=== PATIENT | male | born 1955 | race African-American/Black ===

== ENCOUNTER 2017-05-25 11:13 | Inpatient (IN) | payer MEDICAID ==
[~2017-05-25] VITALS: Ht 167.6 cm; Wt 80.4 kg
[~2017-05-25 11:13] MED LIST: ALBUAER3 IN; AMIO200T33 PO; CARV25TA PO; FLUT100A INH; FURO80TA PO; GABA-497 PO; GLIP-116 PO; HYDR-2652 PO; INSLANTI SC; IPRIH INH; LISI-646 PO; OMEP20CA74 PO; RIVA10TA PO; SIMV10TA73 PO
[2017-05-25] MEDS ORDERED: cefTRIAXone 1GM/50ML D5W 50 ML IV ONE ×2 (11:45→14:30)
[2017-05-25] MEDS ORDERED: methylPREDNISolone SOD SUCC 125 MG/2 ML VL IV ONE (11:45)
[2017-05-25] MEDS ORDERED: LEVOFLOXACIN 750MG 150 ML IV ONE (11:45)
[2017-05-25] MEDS ORDERED: ALBUTEROL SULF 2.5 MG/0.5ML(0.5%) NEB SOLN HHN ONE (11:45)
[2017-05-25] MEDS ORDERED: IPRATROPIUM BROM 0.5 MG/2.5ML INH SOL HHN ONE (11:45)
[2017-05-25 12:15] LABS: Basophils # (auto) 0 uL; Basophils % (auto) 0.5 % (0.0-2.0); CONDITION Y; DEFINITIVE SEE PRINTOUT; Eosinophils # (auto) 0.5 uL; Eosinophils % (auto) 4.9 % (0.0-7.0); Hematocrit 40.6 % (41.0-53.0); Hemoglobin 12.9 g/dL (13.5-17.5); Lymphocytes # (auto) 1.6 uL; Lymphocytes % (auto) 16.7 % (10.0-50.0); Mean Corpuscular Hemoglobin 25.7 pg (28.0-32.0); Mean Corpuscular Hgb Conc. 31.7 g/dL (32.0-36.0); Mean Platelet Volume 9.3 fL (7.4-10.4); Monocytes # (auto) 0.9 uL; Monocytes % (auto) 9.5 % (0.0-12.0); Neutrophils # (auto) 6.5 uL; Neutrophils % (auto) 68.4 % (37.0-80.0); Platelet Count (auto) 302 10^3/uL (140-450); Red Cell Distribution Width 21.6 % (11.6-16.0); White Blood Cell 9.5 10^3/uL (4.4-10.8)
[2017-05-25] MEDS ORDERED: FUROSEMIDE 40 MG/4 ML VIAL IV ONE (12:30)
[2017-05-25 12:45] LABS: Albumin 3.2 g/dL (3.4-5.0); BUN/Creatinine Ratio 11.6; Bilirubin, Total 0.5 mg/dL (0.2-1.0); Calcium 10.5 mg/dL (8.5-10.1); Potassium 3.4 mmol/L (3.5-5.1); Total Protein 7.1 g/dL (6.4-8.2)
[2017-05-25 13:28] LABS: B-Type Natriuretic Peptide 949.1 pg/mL (0-100)
[2017-05-25] MEDS ORDERED: DEXTROSE (50%) 50ML SYRG IV PRN (13:45)
[2017-05-25] MEDS ORDERED: POTASSIUM CHLORIDE 8 MEQ TAB PO ONE (13:45)
[2017-05-25] MEDS ORDERED: cloNIDine HCL 0.1 MG TAB PO PRN (14:00)
[2017-05-25] MEDS ORDERED: MORPHINE SULF INJ 2 MG/ML SYRINGE 1ML IV PRN ×2 (14:15)
[2017-05-25] MEDS ORDERED: TEMAZEPAM 15 MG CAP PO PRN (14:15)
[2017-05-25] MEDS ORDERED: NITROGLYCERIN 0.4 MG SL TAB SL PRN (14:15)
[2017-05-25] MEDS ORDERED: ONDANSETRON HCL 4 MG/2 ML VIAL IV PRN (14:15)
[2017-05-25] MEDS ORDERED: DOCUSATE SOD 100 MG CAP PO PRN (14:15)
[2017-05-25] MEDS ORDERED: ACETAMINOPHEN 325 MG TAB PO PRN (14:15)
[2017-05-25] MEDS ORDERED: FAMOTIDINE 20 MG TAB PO ONE (14:30)
[2017-05-25] MEDS ORDERED: LORATADINE 10 MG TAB PO ONE (14:30)
[2017-05-25] MEDS ORDERED: RIVAROXABAN 10 MG TAB PO ONE (14:30)
[2017-05-25] MEDS ORDERED: LISINOPRIL 20 MG TAB PO ONE (14:30)
[2017-05-25] MEDS ORDERED: AMIODARONE HCL 200 MG TAB PO ONE (14:30)
[2017-05-25] MEDS ORDERED: FUROSEMIDE 40 MG TAB PO ONE (14:30)
[2017-05-25] MEDS ORDERED: methylPREDNISolone SOD SUCC 40 MG/ML VL IV ONE (14:30)
[2017-05-25] MEDS ORDERED: CARVEDILOL 12.5 MG TAB PO ONE (14:30)
[2017-05-25] MEDS ORDERED: hydrALAZINE HCL 25 MG TAB PO ONE (14:30)
[2017-05-25] MEDS ORDERED: MULTIPLE VITAMIN TAB PO ONE (14:30)
[2017-05-25] MEDS: GABAPENTIN 300 MG CAP PO SCH ×2 (15:30→22:12)
[2017-05-25] MEDS ORDERED: AZITHROMYCIN 250 MG TAB PO ONE (16:30)
[2017-05-25] MEDS: ACCU-CHEK COMFORT CURVE STRIP VI SCH ×2 (16:36→22:00)
[2017-05-25] MEDS: InsuLIN REG 1unit/0.01ml Soln (100units/ml) SC SCH ×2 (17:10→22:00)
[2017-05-25] MEDS: methylPREDNISolone SOD SUCC 40 MG/ML VL IV SCH (18:08)
[2017-05-25] MEDS: Boost Glucose Control 8 Ounces PO SCH (18:09)
[2017-05-25] MEDS: hydrALAZINE HCL 25 MG TAB PO SCH ×2 (18:09→23:44)
[2017-05-25] MEDS: ALBUTEROL SULF 2.5 MG/0.5ML(0.5%) NEB SOLN NEB SCH ×2 (20:52→23:01)
[2017-05-25] MEDS: IPRATROPIUM BROM 0.5 MG/2.5ML INH SOL NEB SCH ×2 (20:52→23:01)
[2017-05-25 20:53] LABS: BUN/Creatinine Ratio 10.4; Calcium 9.8 mg/dL (8.5-10.1); Potassium 4.1 mmol/L (3.5-5.1)
[2017-05-25 21:40] VITALS: BP 151/74
[2017-05-25 21:55] VITALS: BP 115/77
[2017-05-25] MEDS ORDERED: PATIENTS OWN MEDICATION IN SCH ×4 (22:00)
[2017-05-25] MEDS: INSULIN DETEMIR(LEVEMIR) 1unit/0.01ml Soln (100units/ml) SC SCH (22:00)
[2017-05-25] MEDS: SEREVENT 50 MCG IN SCH (22:00)
[2017-05-25] MEDS: FLOVENT IN SCH (22:00)
[2017-05-25] MEDS: CARVEDILOL 12.5 MG TAB PO SCH (22:13)
[2017-05-25] MEDS: SODIUM CHLOR 0.9% PF (SALINE LOCK) 10ML VIAL IV SCH (22:13)
[2017-05-25] MEDS: FAMOTIDINE 20 MG TAB PO SCH (22:13)
[2017-05-25] MEDS: BUDESONIDE (INHALATION) 0.5 MG/2 ML NEB NEB SCH (23:06)
[2017-05-26] VITALS (7 sets, daily range): BP systolic 14–146; BP diastolic 67–91
[2017-05-26 06:21] LABS: CONDITION Y; DEFINITIVE SEE PRINTOUT; Hematocrit 39.4 % (41.0-53.0); Hemoglobin 12.6 g/dL (13.5-17.5); Mean Corpuscular Hemoglobin 25.9 pg (28.0-32.0); Mean Corpuscular Volume 80.7 fL (80.0-100.0); Mean Platelet Volume 9.8 fL (7.4-10.4); Platelet Count (auto) 275 10^3/uL (140-450); SUSPECT SEE PRINTOUT; White Blood Cell 6.5 10^3/uL (4.4-10.8)
[2017-05-26] MEDS: SODIUM CHLOR 0.9% PF (SALINE LOCK) 10ML VIAL IV SCH ×3 (06:50→22:16)
[2017-05-26] MEDS: methylPREDNISolone SOD SUCC 40 MG/ML VL IV SCH ×4 (06:50→17:54)
[2017-05-26] MEDS: GABAPENTIN 300 MG CAP PO SCH ×3 (06:51→22:17)
[2017-05-26] MEDS: hydrALAZINE HCL 25 MG TAB PO SCH ×3 (06:51→17:52)
[2017-05-26] MEDS: ACCU-CHEK COMFORT CURVE STRIP VI SCH ×4 (06:51→22:15)
[2017-05-26 06:52] LABS: Metamyelocytes % 0; Myelocytes % 0; Promyelocytes % 0; Reactive Lymphocytes 0; Red Cell Distribution Width 21.5 % (11.6-16.0)
[2017-05-26] MEDS: InsuLIN REG 1unit/0.01ml Soln (100units/ml) SC SCH ×4 (06:52→22:35)
[2017-05-26] MEDS: ALBUTEROL SULF 2.5 MG/0.5ML(0.5%) NEB SOLN NEB SCH ×3 (06:57→19:12)
[2017-05-26] MEDS: IPRATROPIUM BROM 0.5 MG/2.5ML INH SOL NEB SCH ×3 (06:57→19:12)
[2017-05-26] MEDS: INSULIN DETEMIR(LEVEMIR) 1unit/0.01ml Soln (100units/ml) SC SCH ×2 (07:00→22:35)
[2017-05-26] MEDS ORDERED: PNEUMOCOCCAL VACC POLYS 25 MCG/0.5 ML VIAL IM ONE (07:15)
[2017-05-26] MEDS: Boost Glucose Control 8 Ounces PO SCH ×3 (08:00→18:18)
[2017-05-26 08:35] LABS: BUN/Creatinine Ratio 14.6; Potassium 3.9 mmol/L (3.5-5.1)
[2017-05-26 08:36] LABS: Albumin 3.1 g/dL (3.4-5.0); Bilirubin, Total 0.3 mg/dL (0.2-1.0); Calcium 10.4 mg/dL (8.5-10.1)
[2017-05-26 09:16] LABS: Anisocytosis Slight; Giant Platelets Few; Hypochromia Slight; Platelet Estimate Adequate
[2017-05-26] MEDS: AZITHROMYCIN 250 MG TAB PO SCH (09:25)
[2017-05-26] MEDS: MULTIPLE VITAMIN TAB PO SCH (09:26)
[2017-05-26] MEDS: CARVEDILOL 12.5 MG TAB PO SCH ×2 (09:26→22:16)
[2017-05-26] MEDS: FAMOTIDINE 20 MG TAB PO SCH ×2 (09:26→22:17)
[2017-05-26] MEDS: LORATADINE 10 MG TAB PO SCH (09:27)
[2017-05-26] MEDS: LISINOPRIL 20 MG TAB PO SCH (09:27)
[2017-05-26] MEDS: RIVAROXABAN 10 MG TAB PO SCH (09:27)
[2017-05-26] MEDS: AMIODARONE HCL 200 MG TAB PO SCH (09:27)
[2017-05-26] MEDS: cefTRIAXone 1GM/50ML D5W 50 ML IV SCH (09:28)
[2017-05-26] MEDS: FLOVENT IN SCH ×2 (09:31→22:00)
[2017-05-26] MEDS: SEREVENT 50 MCG IN SCH ×2 (09:31→22:00)
[2017-05-26] MEDS ORDERED: FUROSEMIDE 40 MG TAB PO SCH (10:00)
[2017-05-26] MEDS ORDERED: ENOXAPARIN SOD 40 MG/0.4 ML SYRINGE SC SCH (10:00)
[2017-05-26] MEDS ORDERED: PATIENTS OWN MEDICATION PO SCH ×4 (10:00)
[2017-05-26] MEDS: BUDESONIDE (INHALATION) 0.5 MG/2 ML NEB NEB SCH ×2 (11:55→19:16)
[2017-05-26 14:40] LABS: Urine Bilirubin Negative (Negative); Urine Blood Negative /uL (Negative); Urine Color Yellow (Yellow); Urine Glucose 1+ mg/dL (Normal); Urine Ketone Negative (Negative); Urine Nitrite Negative (Negative); Urine RBC <1 /hpf (0 - 3); Urine Squamous Epithelial Cell FEW /hpf (<5); Urine Urobilinogen Normal (Negative)
[2017-05-26] MEDS: HYDROcodone-ACET 5/325MG TAB PO PRN (20:04)
[2017-05-27] MEDS: IPRATROPIUM BROM 0.5 MG/2.5ML INH SOL NEB SCH ×4 (00:07→18:41)
[2017-05-27] MEDS: ALBUTEROL SULF 2.5 MG/0.5ML(0.5%) NEB SOLN NEB SCH ×4 (00:08→18:41)
[2017-05-27] MEDS: hydrALAZINE HCL 25 MG TAB PO SCH ×4 (00:13→17:19)
[2017-05-27] MEDS: methylPREDNISolone SOD SUCC 40 MG/ML VL IV SCH ×3 (00:17→21:54)
[2017-05-27 05:27] VITALS: BP 135/88
[2017-05-27] MEDS: GABAPENTIN 300 MG CAP PO SCH ×3 (06:26→21:55)
[2017-05-27] MEDS: SODIUM CHLOR 0.9% PF (SALINE LOCK) 10ML VIAL IV SCH ×3 (06:28→21:54)
[2017-05-27] MEDS: InsuLIN REG 1unit/0.01ml Soln (100units/ml) SC SCH ×4 (06:33→23:05)
[2017-05-27] MEDS: ACCU-CHEK COMFORT CURVE STRIP VI SCH ×4 (06:34→21:55)
[2017-05-27] MEDS: INSULIN DETEMIR(LEVEMIR) 1unit/0.01ml Soln (100units/ml) SC SCH ×2 (06:43→23:09)
[2017-05-27] MEDS: BUDESONIDE (INHALATION) 0.5 MG/2 ML NEB NEB SCH ×2 (07:05→18:42)
[2017-05-27 07:08] LABS: BUN/Creatinine Ratio 19.8; Calcium 10.5 mg/dL (8.5-10.1); Potassium 4.1 mmol/L (3.5-5.1)
[2017-05-27 07:09] LABS: B-Type Natriuretic Peptide 1057.34 pg/mL (0-100)
[2017-05-27 07:49] LABS: Temperature: 23.3 C (20.0-25.0)
[2017-05-27 08:00] VITALS: BP 135/88
[2017-05-27] MEDS: Boost Glucose Control 8 Ounces PO SCH ×3 (08:00→17:07)
[2017-05-27 09:00] VITALS: BP 137/78
[2017-05-27] MEDS: FUROSEMIDE 40 MG/4 ML VIAL IV SCH (09:33)
[2017-05-27] MEDS: MULTIPLE VITAMIN TAB PO SCH (09:33)
[2017-05-27] MEDS: AMIODARONE HCL 200 MG TAB PO SCH (09:33)
[2017-05-27] MEDS: LORATADINE 10 MG TAB PO SCH (09:33)
[2017-05-27] MEDS: CARVEDILOL 12.5 MG TAB PO SCH ×2 (09:33→21:55)
[2017-05-27] MEDS: SEREVENT 50 MCG IN SCH (09:34)
[2017-05-27] MEDS: FAMOTIDINE 20 MG TAB PO SCH ×2 (09:34→21:55)
[2017-05-27] MEDS: cefTRIAXone 1GM/50ML D5W 50 ML IV SCH (09:34)
[2017-05-27] MEDS: FLOVENT IN SCH (09:34)
[2017-05-27] MEDS: RIVAROXABAN 10 MG TAB PO SCH (09:35)
[2017-05-27] MEDS: LISINOPRIL 20 MG TAB PO SCH (09:35)
[2017-05-27] MEDS: AZITHROMYCIN 250 MG TAB PO SCH (09:35)
[2017-05-27] MEDS ORDERED: FUROSEMIDE 40 MG TAB PO SCH (10:00)
[2017-05-27 13:00] VITALS: BP 136/77
[2017-05-27] MEDS: SPIRONOLACTONE 25 MG TAB PO SCH (17:18)
[2017-05-27 17:52] VITALS: BP 139/57
[2017-05-27 22:00] VITALS: BP 134/88
[2017-05-28] MEDS: IPRATROPIUM BROM 0.5 MG/2.5ML INH SOL NEB SCH ×3 (00:14→13:32)
[2017-05-28] MEDS: ALBUTEROL SULF 2.5 MG/0.5ML(0.5%) NEB SOLN NEB SCH ×3 (00:14→13:32)
[2017-05-28] MEDS: hydrALAZINE HCL 25 MG TAB PO SCH ×3 (00:41→16:13)
[2017-05-28 05:00] VITALS: BP 137/85
[2017-05-28 06:00] LABS: Calcium 10.7 mg/dL (8.5-10.1); Potassium 4.1 mmol/L (3.5-5.1)
[2017-05-28] MEDS: SODIUM CHLOR 0.9% PF (SALINE LOCK) 10ML VIAL IV SCH ×2 (06:11→14:00)
[2017-05-28] MEDS: GABAPENTIN 300 MG CAP PO SCH ×2 (06:11→16:13)
[2017-05-28] MEDS: ACCU-CHEK COMFORT CURVE STRIP VI SCH ×2 (06:11→11:30)
[2017-05-28] MEDS: SPIRONOLACTONE 25 MG TAB PO SCH (06:11)
[2017-05-28] MEDS: InsuLIN REG 1unit/0.01ml Soln (100units/ml) SC SCH ×2 (06:12→11:30)
[2017-05-28 06:21] LABS: BUN/Creatinine Ratio 24.3
[2017-05-28] MEDS: INSULIN DETEMIR(LEVEMIR) 1unit/0.01ml Soln (100units/ml) SC SCH (06:24)
[2017-05-28] MEDS: BUDESONIDE (INHALATION) 0.5 MG/2 ML NEB NEB SCH (06:51)
[2017-05-28 08:00] VITALS: BP 136/75
[2017-05-28] MEDS: Boost Glucose Control 8 Ounces PO SCH ×2 (08:00→12:00)
[2017-05-28] MEDS: cefTRIAXone 1GM/50ML D5W 50 ML IV SCH (08:52)
[2017-05-28 09:00] VITALS: BP 125/77
[2017-05-28] MEDS: RIVAROXABAN 10 MG TAB PO SCH (10:00)
[2017-05-28] MEDS: MULTIPLE VITAMIN TAB PO SCH (10:00)
[2017-05-28] MEDS: methylPREDNISolone SOD SUCC 40 MG/ML VL IV SCH (10:45)
[2017-05-28] MEDS: FUROSEMIDE 40 MG/4 ML VIAL IV SCH (10:45)
[2017-05-28] MEDS: CARVEDILOL 12.5 MG TAB PO SCH (10:47)
[2017-05-28] MEDS: FAMOTIDINE 20 MG TAB PO SCH (10:48)
[2017-05-28] MEDS: AMIODARONE HCL 200 MG TAB PO SCH (10:48)
[2017-05-28] MEDS: LORATADINE 10 MG TAB PO SCH (10:49)
[2017-05-28] MEDS: AZITHROMYCIN 250 MG TAB PO SCH (10:51)
[2017-05-28] MEDS: LISINOPRIL 20 MG TAB PO SCH (10:52)
[2017-05-28] MEDS: HYDROcodone-ACET 5/325MG TAB PO PRN ×3 (10:59→16:14)
[2017-05-28 13:31] VITALS: BP 115/74
[2017-05-28 14:20] VITALS: BP 115/74
[2017-05-28 14:44] VITALS: BP 115/74
== END 2017-05-28 17:00 | disposition home or self-care (01) | DRG 194 ==
LOC: ER 11:19 → TELE 11:20 → TELE-WESTW 21:54
PROVIDERS: ADMIT Internal Medicine; ATTEND Internal Medicine
DX: I13.0 Hypertensive heart and chronic kidney disease with heart failure and stage 1 through stage 4 chronic kidney disease, or unspecified chronic kidney disease (principal); J18.9 Pneumonia, unspecified organism; E44.0 Moderate protein-calorie malnutrition; E11.22 Type 2 diabetes mellitus with diabetic chronic kidney disease; J44.0 Chronic obstructive pulmonary disease with (acute) lower respiratory infection; I42.9 Cardiomyopathy, unspecified; J45.901 Unspecified asthma with (acute) exacerbation; I27.2 Other secondary pulmonary hypertension; E83.52 Hypercalcemia; I50.43 Acute on chronic combined systolic (congestive) and diastolic (congestive) heart failure; I25.10 Atherosclerotic heart disease of native coronary artery without angina pectoris; J20.9 Acute bronchitis, unspecified; N18.2 Chronic kidney disease, stage 2 (mild); E78.5 Hyperlipidemia, unspecified; J44.1 Chronic obstructive pulmonary disease with (acute) exacerbation; Z99.81 Dependence on supplemental oxygen; Z23 Encounter for immunization; D63.8 Anemia in other chronic diseases classified elsewhere; E78.00 Pure hypercholesterolemia, unspecified; E87.6 Hypokalemia; Z82.49 Family history of ischemic heart disease and other diseases of the circulatory system; Z83.3 Family history of diabetes mellitus; Z87.891 Personal history of nicotine dependence; Z91.11 Patient's noncompliance with dietary regimen; Z95.810 Presence of automatic (implantable) cardiac defibrillator; Z79.899 Other long term (current) drug therapy; Z79.84 Long term (current) use of oral hypoglycemic drugs; Z68.28 Body mass index [BMI] 28.0-28.9, adult; Z88.8 Allergy status to other drugs, medicaments and biological substances
CPT/HCPCS: 36415; 71020; 78582; 80048; 80053; 81001; 82962; 83036; 83540; 83605; 83735; 83880; 84484; 85007; 85025; 85027; 85379; 87040; 87070; 87205; 93005; 94640; 96365; 96367; 96368; 96375; 99291; J0696; J1815; J1956

== ENCOUNTER → 2018-03-30 | Outpatient (CLI) | payer MEDICAID ==
[~2018-03-30] MED LIST changes: -GABA-497 PO; +GABA300C10 PO; -HYDR-2652 PO; +HYDR50TA15 PO
== END | disposition home or self-care (01) ==
LOC: XYW 10:54
PROVIDERS: ATTEND Internal Medicine Cardiovascular Disease
DX: I08.0 Rheumatic disorders of both mitral and aortic valves (principal); I50.40 Unspecified combined systolic (congestive) and diastolic (congestive) heart failure; I25.10 Atherosclerotic heart disease of native coronary artery without angina pectoris; E11.22 Type 2 diabetes mellitus with diabetic chronic kidney disease; I12.9 Hypertensive chronic kidney disease with stage 1 through stage 4 chronic kidney disease, or unspecified chronic kidney disease; N18.2 Chronic kidney disease, stage 2 (mild); E78.5 Hyperlipidemia, unspecified; J44.9 Chronic obstructive pulmonary disease, unspecified; Z79.899 Other long term (current) drug therapy
CPT/HCPCS: 93306

== ENCOUNTER 2018-05-16 08:26 | Day surgery (SDC) | payer MEDICAID, OTHER ==
[2018-05-12 09:23] LABS: Basophils # (auto) 0.1 uL; Eosinophils # (auto) 0.3 uL; Monocytes # (auto) 0.8 uL; Red Blood Cells 6.29 10^6/uL (4.5-5.90); White Blood Cell 6.2 10^3/uL (4.4-10.8)
[2018-05-12 09:24] LABS: Basophils % (auto) 1.2 % (0.0-2.0); Eosinophils % (auto) 5.5 % (0.0-7.0); Hematocrit 49.4 % (41.0-53.0); Hemoglobin 15.9 g/dL (13.5-17.5); Lymphocytes # (auto) 1.8 uL; Mean Corpuscular Hemoglobin 25.3 pg (28.0-32.0); Mean Corpuscular Hgb Conc. 32.2 g/dL (32.0-36.0); Mean Corpuscular Volume 78.5 fL (80.0-100.0); Monocytes % (auto) 12.8 % (0.0-12.0); Neutrophils # (auto) 3.2 uL; Neutrophils % (auto) 51.5 % (37.0-80.0); Nucleated Red Blood Cells % 2.3 %; Platelet Count (auto) 190 10^3/uL (140-450)
[2018-05-12 09:31] LABS: Red Cell Distribution Width 20.6 % (11.8-14.3)
[2018-05-12 09:39] LABS: INR 1.19 (0.9-1.15); Partial Thromboplastin Time 35.9 sec (23.78-33.04); Prothrombin Time 12.6 sec (9.27-12.13)
[~2018-05-16] VITALS: Ht 167.6 cm; Wt 86.2 kg
[~2018-05-16 08:26] MED LIST changes: +CETI10TA80 PO; -FLUT100A INH; -GLIP-116 PO; -HYDR50TA15 PO; +INSU70IN3 SC; -IPRIH INH; -OMEP20CA74 PO; +SERDISK IN
[2018-05-16] MEDS ORDERED: SODIUM CHLORIDE LOCK 10 ML ONE (08:38)
[2018-05-16] MEDS ORDERED: diphenhdrAMINE HCL 50 MG/1 ML VL ONE (08:38)
[2018-05-16] MEDS: fentaNYL CITRATE 100 MCG/2 ML VL ONE ×2 (09:57→10:02)
[2018-05-16] MEDS: MIDAZOLAM HCL 5 MG/ML-1ML VIAL ONE ×2 (09:57→10:02)
[2018-05-16 11:03] VITALS: BP 154/87
== END 2018-05-16 11:11 | disposition home or self-care (01) ==
LOC: SUR 08:26
PROVIDERS: ATTEND Internal Medicine Gastroenterology
DX: K63.5 Polyp of colon (principal); K64.8 Other hemorrhoids; E66.9 Obesity, unspecified; I50.9 Heart failure, unspecified; J44.9 Chronic obstructive pulmonary disease, unspecified; E11.9 Type 2 diabetes mellitus without complications; I48.91 Unspecified atrial fibrillation; Z82.49 Family history of ischemic heart disease and other diseases of the circulatory system; Z88.8 Allergy status to other drugs, medicaments and biological substances; Z95.0 Presence of cardiac pacemaker; Z91.02 Food additives allergy status; Z79.899 Other long term (current) drug therapy
CPT/HCPCS: 45380; J1200; J3010; J7030; 36415; 82962; 85025; 85610; 85730; 99152; J2250

== ENCOUNTER → 2019-03-01 | Outpatient (CLI) | payer MEDICAID, OTHER | END | disposition home or self-care (01) | LOC: XYW 09:07 | PROVIDERS: ATTEND Internal Medicine Cardiovascular Disease | DX: I42.0 Dilated cardiomyopathy (principal); I27.21 Secondary pulmonary arterial hypertension; I51.7 Cardiomegaly | CPT/HCPCS: 93306 ==

== ENCOUNTER 2019-05-03 08:34 | Day surgery (SDC) | payer MEDICAID ==
[~2019-05-03] VITALS: Ht 167.6 cm; Wt 88.9 kg
[~2019-05-03 08:34] MED LIST changes: +ALBU0.08 HHN; +FLUT250INH IN; +FURO40TA4 PO; -FURO80TA PO; +GUAI600T23 PO; -INSLANTI SC; -SIMV10TA73 PO; +SPIR25TA8 PO
[2019-05-03] MEDS ORDERED: LIDOCAINE 2%HCL (LOCAL ANESTH.) INJ 20ML MDV ONE ×2 (09:34→09:57)
[2019-05-03] MEDS ORDERED: fentaNYL CITRATE 100 MCG/2 ML VL ONE (09:35)
[2019-05-03] MEDS ORDERED: MIDAZOLAM HCL 1MG/1ML-2 ML VIAL ONE (09:35)
[2019-05-03] MEDS ORDERED: ANGIOMAX 250 MG VIAL IV ONE (09:35)
[2019-05-03] MEDS ORDERED: SODIUM CHL 0.9% 0 ML ONE (09:36)
[2019-05-03] MEDS ORDERED: ACETAMINOPHEN 500 MG TAB PO ONE (11:15)
== END 2019-05-03 12:50 | disposition home or self-care (01) ==
LOC: CATH 08:34
PROVIDERS: ATTEND Internal Medicine
DX: I27.20 Pulmonary hypertension, unspecified (principal); I25.10 Atherosclerotic heart disease of native coronary artery without angina pectoris; J44.9 Chronic obstructive pulmonary disease, unspecified; E78.5 Hyperlipidemia, unspecified; E11.9 Type 2 diabetes mellitus without complications; I11.0 Hypertensive heart disease with heart failure; I50.9 Heart failure, unspecified; Z79.899 Other long term (current) drug therapy; Z87.891 Personal history of nicotine dependence; Z79.4 Long term (current) use of insulin; Z88.8 Allergy status to other drugs, medicaments and biological substances; Z95.0 Presence of cardiac pacemaker
CPT/HCPCS: 93460; C1751; C1760; C1769; C1894; J1644; J2250; J3010; J7030; 93566; 99152; 99153

== ENCOUNTER 2020-03-11 01:40 | Inpatient (IN) | payer MEDICAID, OTHER ==
[~2020-03-11] VITALS: Ht 167.6 cm; Wt 201.3 kg
[2020-03-11 02:39] LABS: Basophils # (auto) 0.1 10 ^3/uL (0-0.2); Basophils % (auto) 1.4 % (0.0-2.0); Eosinophils # (auto) 0.2 10 ^3/uL (0-0.8); Eosinophils % (auto) 2.5 % (0.0-7.0); Hematocrit 30.1 % (41.0-53.0); Hemoglobin 9.6 g/dL (13.5-17.5); Lymphocytes # (auto) 1.3 10 ^3/uL (0.4-5.4); Lymphocytes % (auto) 20.7 % (10.0-50.0); Mean Corpuscular Hemoglobin 29.6 pg (28.0-32.0); Mean Corpuscular Hgb Conc. 31.9 g/dL (32.0-36.0); Mean Corpuscular Volume 92.8 fL (80.0-100.0); Monocytes # (auto) 0.8 10 ^3/uL (0-1.3); Monocytes % (auto) 11.9 % (0.0-12.0); Neutrophils % (auto) 63.5 % (37.0-80.0); Nucleated Red Blood Cells % 1.2 %; Platelet Count (auto) 223 10^3/uL (140-450); Red Blood Cells 3.24 10^6/uL (4.5-5.90); Red Cell Distribution Width 19.7 % (11.8-14.3); White Blood Cell 6.4 10^3/uL (4.4-10.8)
[2020-03-11 02:54] LABS: INR 1.06 (0.9-1.15); Partial Thromboplastin Time 22.8 sec (23.64-32.05)
[2020-03-11 03:00] LABS: Alanine Aminotransferase 17 U/L (16-61); Albumin 3.2 g/dL (3.4-5.0); Anion Gap 3 (5-15); Blood Urea Nitrogen 24 mg/dL (7-18); Calcium 9.8 mg/dL (8.5-10.1); Carbon Dioxide 25 mmol/L (21-32); Chloride 110 mmol/L (98-107); Glucose 167 mg/dL (74-106); Magnesium 2.3 mg/dL (1.6-2.6); Potassium 3.8 mmol/L (3.5-5.1); Sodium 138 mmol/L (136-145)
[2020-03-11 03:05] LABS: Alkaline Phosphatase 60 U/L (45-117); Aspartate Aminotransferase 11 U/L (15-37); BUN/Creatinine Ratio 12.2; Bilirubin, Total 0.2 mg/dL (0.2-1.0); GFR African American 45 mL/min; GFR Non-African American 37 mL/min; Total Protein 6.7 g/dL (6.4-8.2)
[2020-03-11] MEDS ORDERED: MORPHINE SULF INJ 2 MG/ML SYRINGE 1ML IV PRN (05:15)
[2020-03-11] MEDS ORDERED: ONDANSETRON HCL 4 MG/2 ML VIAL IV PRN (05:15)
[2020-03-11] MEDS ORDERED: DEXTROSE (50%) 50ML SYRG IV PRN (05:15)
[2020-03-11] MEDS ORDERED: NITROGLYCERIN 0.4 MG SL TAB SL PRN (05:15)
[2020-03-11 06:20] VITALS: BP 114/71
[2020-03-11] MEDS: SODIUM CHLORIDE 0.9% 1,000 ML IV SCH ×2 (06:30→18:53)
[2020-03-11] MEDS: ACCU-CHEK COMFORT CURVE STRIP VI SCH ×5 (08:30→23:43)
[2020-03-11] MEDS: InsuLIN REG 1unit/0.01ml Soln (100units/ml) SC SCH ×5 (08:30→23:44)
--- NOTE | 2020-03-11 09:10 | NUR ---
Telemetry admit from ER RAFAT MARES admitted to Telemetry unit after SBAR received. Patient oriented to Veronique Phillips, primary RN, unit, room, bed, and unit policies regarding patient care and visiting hours. Patient now on continuous telemetry monitoring, tele box #60 and telemetry reading on arrival to unit is SR @73 BPM. Bed set to lowest position/locked, bedside rails up x2, call light within reach. Instructed patient to call for assistance. Patient verbalized understanding. Will continue to monitor q1hr and prn.
[2020-03-11 09:25] VITALS: BP 123/73
[2020-03-11] MEDS: DOCUSATE SOD 100 MG CAP PO SCH (10:00)
[2020-03-11] MEDS: FUROSEMIDE 40 MG TAB PO SCH (10:00)
[2020-03-11] MEDS: SPIRONOLACTONE 25 MG TAB PO SCH ×2 (11:04→22:00)
[2020-03-11] MEDS: LORATADINE 10 MG TAB PO SCH (11:04)
[2020-03-11] MEDS: CARVEDILOL 12.5 MG TAB PO SCH ×2 (11:05→22:00)
[2020-03-11] MEDS: ASPirin 81 mg TAB PO SCH (11:05)
[2020-03-11] MEDS: LISINOPRIL 20 MG TAB PO SCH (11:06)
[2020-03-11] MEDS: AMIODARONE HCL 200 MG TAB PO SCH (11:08)
[2020-03-11] MEDS: INSULIN 70/30 1unit/0.01ml Susp (100units/ml) SC SCH (11:18)
[2020-03-11] MEDS: GABAPENTIN 300 MG CAP PO SCH ×2 (11:19→21:44)
[2020-03-11 13:15] VITALS: BP 146/83
[2020-03-11] MEDS: ACETAMINOPHEN 325 MG TAB PO PRN (16:14)
[2020-03-11 16:46] VITALS: BP 108/68
--- NOTE | 2020-03-11 18:11 | NUR ---
[employer] INTERROGATION SPOKE TO OPAL FROM [employer] RE: [facility] INTERROGATION. PER OPAL SHE WILL SEND A PAGE OUT TO A WHIPPED TOPPING FINISHER. AWAITING CALL BACK.
--- NOTE | 2020-03-11 18:18 | NUR ---
[facility] RECEIVED CALL FROM ROSAURA (REP), PER RAY THEY CANNOT FIND THE DEVICE IN THEIR DATABASE.
[2020-03-11] MEDS: RIVAROXABAN 10 MG TAB PO SCH (18:49)
--- NOTE | 2020-03-11 18:53 | NUR ---
PATIENT IS REQUESTING A DIPPER. INFORMED PATIENT THIS FACILITY IS A DIPPER FREE AND WE DO NOT PROVIDE DIPPERS. EDUCATED PATIENT ON THE RISK OF WEARING A DIPPER, SUCH SKIN BREAKDOWN. PATIENT STATED "I CAN HAVE MY BRING ME SOME DEPENDS." THIS NURSE REITERATED THE NO DIPPER FACILITY. PATIENT VERBALIZED UNDERSTANDING.
--- NOTE | 2020-03-11 19:04 | NUR ---
Respiratory note: Pt assess for prn tx. Tx not indicated at this time. Bs are diminished clear t/o. Pox 92-94% on 3lpm nc. HR in 70s. RT name and pager assignment written on pts room board. Will continue to monitor. Pt aware I can be paged at any time he feels sob or has a concern with his breathing.
--- NOTE | 2020-03-11 19:41 | NUR ---
Opening Shift Note Received report and assumed care of patient. Patient is awake and alert. No signs or symptoms of distress noted, patient currently denies pain. Instructed patient on plan of care and to call for assistance as needed. Will continue to monitor.
[2020-03-11 22:00] VITALS: BP 94/54
--- NOTE | 2020-03-11 22:05 | NUR ---
Blood Pressure Medications Held Patient's blood pressure 93/57, heart rate 64. Held Aldactone 25mg PO and Coreg 25mg PO due to decreased blood pressure. Patient denies dizziness or any symptoms. Paged hospitalist to notify, awaiting call back.
[2020-03-11 23:42] LABS: Urine Bacteria NONE SEEN /hpf (None Seen); Urine Blood Negative /uL (Negative); Urine Specific Gravity 1.016 (1.001-1.035); Urine WBC <1 /hpf (0 - 3)
--- NOTE | 2020-03-12 02:49 | NUR ---
Hospitalist Call Back Hospitalist made aware of blood pressure and blood pressure medications being held. No new orders at this time, will continue to monitor.
[2020-03-12] MEDS: InsuLIN REG 1unit/0.01ml Soln (100units/ml) SC SCH ×5 (04:00→22:00)
--- NOTE | 2020-03-12 04:40 | NUR ---
IV Insertion Inserted 20g IV to the Right Forearm. IV secured properly.Patient tolerated well. NOTE: Patient needs 2 IVs for stress test.
[2020-03-12] MEDS: ACCU-CHEK COMFORT CURVE STRIP VI SCH ×5 (04:48→22:00)
[2020-03-12 05:00] VITALS: BP 94/57
[2020-03-12 06:01] LABS: Basophils # (auto) 0 10 ^3/uL (0-0.2); Basophils % (auto) 0.3 % (0.0-2.0); Eosinophils # (auto) 0.2 10 ^3/uL (0-0.8); Eosinophils % (auto) 2.9 % (0.0-7.0); Hemoglobin 8.8 g/dL (13.5-17.5); Lymphocytes # (auto) 1.1 10 ^3/uL (0.4-5.4); Lymphocytes % (auto) 19.6 % (10.0-50.0); Mean Corpuscular Hemoglobin 30.3 pg (28.0-32.0); Mean Corpuscular Hgb Conc. 32.5 g/dL (32.0-36.0); Mean Corpuscular Volume 93.3 fL (80.0-100.0); Monocytes # (auto) 0.8 10 ^3/uL (0-1.3); Monocytes % (auto) 14.1 % (0.0-12.0); Neutrophils # (auto) 3.4 10 ^3/uL (1.6-8.6); Neutrophils % (auto) 63.1 % (37.0-80.0); Nucleated Red Blood Cells % 0.1 %; Platelet Count (auto) 200 10^3/uL (140-450); Red Blood Cells 2.89 10^6/uL (4.5-5.90); Red Cell Distribution Width 18.9 % (11.8-14.3); White Blood Cell 5.4 10^3/uL (4.4-10.8)
[2020-03-12 06:34] LABS: Potassium 4.6 mmol/L (3.5-5.1)
[2020-03-12 06:44] LABS: Calcium 9.8 mg/dL (8.5-10.1)
[2020-03-12] MEDS: SODIUM CHLORIDE 0.9% 1,000 ML IV SCH ×2 (06:50→21:15)
--- NOTE | 2020-03-12 07:44 | NUR ---
OPENING NOTE ASSUMED CARE OF PT. PT ALERT AND ORIENTED. NO S/S OF SOB/DISTRESS NOTED. BED SET TO LOWEST POSITION/LOCKED, BEDSIDE RAILS UP X2, CALL LIGHT WITHIN REACH. INSTRUCTED PATIENT TO CALL FOR ASSISTANCE. UPDATED ON POC. PT VERBALIZED UNDERSTANDING. WILL CONTINUE TO MONITOR Q1HR AND PRN.
[2020-03-12] MEDS ORDERED: ADENOSINE 78 MG in GIVE UN-DILUTED 0 ML IV STA (08:09)
[2020-03-12 08:35] VITALS: BP 105/56
[2020-03-12 08:49] VITALS: BP 109/71
[2020-03-12] MEDS: DOCUSATE SOD 100 MG CAP PO SCH (10:00)
[2020-03-12] MEDS: ASPirin 81 mg TAB PO SCH (10:03)
[2020-03-12] MEDS: GABAPENTIN 300 MG CAP PO SCH ×2 (10:04→22:39)
[2020-03-12] MEDS: LORATADINE 10 MG TAB PO SCH (10:04)
[2020-03-12] MEDS: LISINOPRIL 20 MG TAB PO SCH (10:04)
[2020-03-12] MEDS: SPIRONOLACTONE 25 MG TAB PO SCH ×2 (10:04→22:39)
[2020-03-12] MEDS: FUROSEMIDE 40 MG TAB PO SCH (10:04)
[2020-03-12] MEDS: IPRATROPIUM BROM 0.5 MG/2.5ML INH SOL NEB PRN (10:05)
[2020-03-12] MEDS: ALBUTEROL SULF 2.5 MG/0.5ML(0.5%) NEB SOLN NEB PRN (10:05)
[2020-03-12] MEDS: AMIODARONE HCL 200 MG TAB PO SCH (10:05)
[2020-03-12] MEDS: CARVEDILOL 12.5 MG TAB PO SCH ×2 (10:06→22:00)
[2020-03-12] MEDS: INSULIN 70/30 1unit/0.01ml Susp (100units/ml) SC SCH (10:08)
--- NOTE | 2020-03-12 12:04 | NUR ---
Est energy needs 3486-6443 kcal (22-25 kcal/kg BW) Est protein needs 93-103g (1-1.1g/kg BW). Will reassess prn. Addendum: 03/12/20 at [address] Amended: Links added.
[2020-03-12] MEDS ORDERED: ECON1CRE TOP (12:06)
[2020-03-12] MEDS ORDERED: FENO145T27 PO (12:06)
[2020-03-12] MEDS ORDERED: CHOL20007 PO (12:06)
[2020-03-12] MEDS ORDERED: FERR-20 PO (12:06)
[2020-03-12 13:00] VITALS: BP 95/62
--- NOTE | 2020-03-12 14:08 | NUR ---
[facility] INTER[facility] SPOKE TO CHARIS FROM [employer] RE: [facility] INTERROGATION. PER CHARIS SHE WILL SEND A PAGE OUT TO A IRRIGATION SUPERVISOR. AWAITING CALL BACK.
--- NOTE | 2020-03-12 14:16 | NUR ---
[employer] RECEIVED CALL FROM ROSAURA (REP), PER ROSAURA HE WILL COME TO SEE PATIENT TODAY.
[2020-03-12] MEDS ORDERED: ANGIOMAX 250 MG VIAL IV ONE (14:48)
[2020-03-12] MEDS ORDERED: SODIUM CHL 0.9% 50 ML ONE (14:48)
[2020-03-12 17:00] VITALS: BP 95/65
[2020-03-12] MEDS: RIVAROXABAN 10 MG TAB PO SCH (17:44)
--- NOTE | 2020-03-12 20:08 | NUR ---
RESPIRATORY PAGED FOR PRN BREATHING TREATMENT PER PATIENT REQUEST. NO S/S OF DISTRESS NOTED.
--- NOTE | 2020-03-12 21:43 | NUR ---
RESPIRATORY PAGED FOR PRN BREATHING TREATMENT PER PATIENT REQUEST. PER PATIENT RESPIRATORY HAS NOT BEEN IN TO GIVE PRN TREATMENT. NO S/S OF DISTRESS NOTED.
[2020-03-12 22:02] VITALS: BP 96/66
[2020-03-12] MEDS: ACETAMINOPHEN 325 MG TAB PO PRN (22:39)
--- NOTE | 2020-03-12 22:39 | NUR ---
HEADACHE PATIENT REPORTING A HEADACHE RATED PAIN LEVEL 4/10. PATIENT IS REQUESTING TYLENOL FOR HIS HEADACHE. PATIENT GIVEN TYLENOL PRN ORDERED FOR PAIN.
[2020-03-13 05:00] VITALS: BP 99/62
[2020-03-13 05:45] LABS: Basophils # (auto) 0.1 10 ^3/uL (0-0.2); Basophils % (auto) 0.9 % (0.0-2.0); Eosinophils # (auto) 0.2 10 ^3/uL (0-0.8); Eosinophils % (auto) 4.3 % (0.0-7.0); Hematocrit 28.1 % (41.0-53.0); Hemoglobin 9.2 g/dL (13.5-17.5); Lymphocytes # (auto) 1.3 10 ^3/uL (0.4-5.4); Lymphocytes % (auto) 24.5 % (10.0-50.0); Mean Corpuscular Hemoglobin 30.4 pg (28.0-32.0); Mean Corpuscular Hgb Conc. 32.9 g/dL (32.0-36.0); Mean Corpuscular Volume 92.5 fL (80.0-100.0); Monocytes # (auto) 0.7 10 ^3/uL (0-1.3); Monocytes % (auto) 12.5 % (0.0-12.0); Neutrophils # (auto) 3.2 10 ^3/uL (1.6-8.6); Neutrophils % (auto) 57.8 % (37.0-80.0); Nucleated Red Blood Cells % 0.5 %; Platelet Count (auto) 221 10^3/uL (140-450); Red Blood Cells 3.04 10^6/uL (4.5-5.90); Red Cell Distribution Width 18.8 % (11.8-14.3); White Blood Cell 5.5 10^3/uL (4.4-10.8)
[2020-03-13 05:56] LABS: BUN/Creatinine Ratio 9.9; Calcium 10.5 mg/dL (8.5-10.1); Potassium 4.4 mmol/L (3.5-5.1)
[2020-03-13] MEDS: ACCU-CHEK COMFORT CURVE STRIP VI SCH ×4 (06:50→22:00)
[2020-03-13] MEDS: InsuLIN REG 1unit/0.01ml Soln (100units/ml) SC SCH ×4 (06:50→22:00)
[2020-03-13 09:00] VITALS: BP 105/69
--- NOTE | 2020-03-13 10:15 | NUR ---
Dr. Urbina at bedside to assess patient and discuss plan of care
[2020-03-13] MEDS: DOCUSATE SOD 100 MG CAP PO SCH (10:22)
[2020-03-13] MEDS: FUROSEMIDE 40 MG TAB PO SCH (10:22)
[2020-03-13] MEDS: LORATADINE 10 MG TAB PO SCH (10:23)
[2020-03-13] MEDS: GABAPENTIN 300 MG CAP PO SCH ×2 (10:23→22:50)
[2020-03-13] MEDS: ASPirin 81 mg TAB PO SCH (10:23)
[2020-03-13] MEDS: SPIRONOLACTONE 25 MG TAB PO SCH ×2 (10:25→22:50)
[2020-03-13] MEDS: CARVEDILOL 12.5 MG TAB PO SCH ×2 (10:25→22:00)
[2020-03-13] MEDS: LISINOPRIL 20 MG TAB PO SCH (10:27)
[2020-03-13] MEDS: INSULIN 70/30 1unit/0.01ml Susp (100units/ml) SC SCH (10:38)
[2020-03-13] MEDS: AMIODARONE HCL 200 MG TAB PO SCH (10:40)
[2020-03-13] MEDS: SODIUM CHLORIDE 0.9% 1,000 ML IV SCH (10:41)
[2020-03-13] MEDS: ALBUTEROL SULF 2.5 MG/0.5ML(0.5%) NEB SOLN NEB PRN ×2 (11:26→18:14)
[2020-03-13] MEDS: IPRATROPIUM BROM 0.5 MG/2.5ML INH SOL NEB PRN ×2 (11:26→18:14)
[2020-03-13 12:16] LABS: Cholesterol 184 mg/dL (< 200)
[2020-03-13 12:18] LABS: HDL Cholesterol 33 mg/dL (40-59); LDL Cholesterol 123 mg/dL (< 100); Triglycerides 179 mg/dL (< 150)
[2020-03-13 13:00] VITALS: BP 94/58
[2020-03-13 16:52] VITALS: BP 98/58
[2020-03-13] MEDS: RIVAROXABAN 10 MG TAB PO SCH (18:46)
[2020-03-13 21:53] VITALS: BP 103/57
[2020-03-14] VITALS (7 sets, daily range): BP systolic 97–129; BP diastolic 56–77
[2020-03-14] MEDS: InsuLIN REG 1unit/0.01ml Soln (100units/ml) SC SCH ×4 (06:10→21:27)
[2020-03-14] MEDS: ACCU-CHEK COMFORT CURVE STRIP VI SCH ×4 (06:10→21:27)
[2020-03-14] MEDS: ACETAMINOPHEN 325 MG TAB PO PRN (06:50)
--- NOTE | 2020-03-14 06:50 | NUR ---
HEADACHE PATIENT REPORTING HEADACHE RATED 3/10. PRN MEDICATION GIVEN ORDERED.
[2020-03-14 07:00] LABS: Basophils # (auto) 0 10 ^3/uL (0-0.2); Basophils % (auto) 0.7 % (0.0-2.0); Eosinophils # (auto) 0.2 10 ^3/uL (0-0.8); Eosinophils % (auto) 2.8 % (0.0-7.0); Hematocrit 28.2 % (41.0-53.0); Hemoglobin 9.3 g/dL (13.5-17.5); Lymphocytes # (auto) 1.3 10 ^3/uL (0.4-5.4); Lymphocytes % (auto) 21.5 % (10.0-50.0); Mean Corpuscular Hemoglobin 30.1 pg (28.0-32.0); Mean Corpuscular Hgb Conc. 33.1 g/dL (32.0-36.0); Mean Corpuscular Volume 90.9 fL (80.0-100.0); Monocytes # (auto) 0.6 10 ^3/uL (0-1.3); Monocytes % (auto) 9.9 % (0.0-12.0); Neutrophils # (auto) 4.1 10 ^3/uL (1.6-8.6); Neutrophils % (auto) 65.1 % (37.0-80.0); Nucleated Red Blood Cells % 0.2 %; Platelet Count (auto) 238 10^3/uL (140-450); Red Cell Distribution Width 18.6 % (11.8-14.3); White Blood Cell 6.3 10^3/uL (4.4-10.8)
[2020-03-14 07:11] LABS: BUN/Creatinine Ratio 11.3; Calcium 10.8 mg/dL (8.5-10.1); Potassium 4.5 mmol/L (3.5-5.1)
[2020-03-14] MEDS: SPIRONOLACTONE 25 MG TAB PO SCH ×2 (09:58→21:44)
[2020-03-14] MEDS: DOCUSATE SOD 100 MG CAP PO SCH (09:58)
[2020-03-14] MEDS: ASPirin 81 mg TAB PO SCH (09:58)
[2020-03-14] MEDS: FUROSEMIDE 40 MG TAB PO SCH (10:00)
[2020-03-14] MEDS: CARVEDILOL 12.5 MG TAB PO SCH ×2 (10:00→21:44)
[2020-03-14] MEDS: LISINOPRIL 20 MG TAB PO SCH (10:00)
[2020-03-14] MEDS: AMIODARONE HCL 200 MG TAB PO SCH (10:00)
[2020-03-14] MEDS: LORATADINE 10 MG TAB PO SCH (10:02)
[2020-03-14] MEDS: GABAPENTIN 300 MG CAP PO SCH ×2 (10:02→21:44)
[2020-03-14] MEDS: INSULIN 70/30 1unit/0.01ml Susp (100units/ml) SC SCH (10:14)
[2020-03-14] MEDS: IPRATROPIUM BROM 0.5 MG/2.5ML INH SOL NEB PRN ×2 (10:35→23:08)
[2020-03-14] MEDS: ALBUTEROL SULF 2.5 MG/0.5ML(0.5%) NEB SOLN NEB PRN ×2 (10:35→23:09)
[2020-03-14] MEDS: RIVAROXABAN 10 MG TAB PO SCH (17:57)
--- NOTE | 2020-03-14 19:20 | NUR ---
Opening Note Patient awake in bed AOX4. Patient has no signs of distress or SOB. Discussed POC w/ patient, patient verbalized understanding. Safety precautions in place w/ HOB at 30 degrees, side rails up x2, and bed in lowest position. Will continue to monitor.
[2020-03-14] MEDS: SILDENAFIL CITRATE 20 MG TAB PO SCH (19:54)
[2020-03-15 05:48] VITALS: BP 111/81
[2020-03-15] MEDS: ALBUTEROL SULF 2.5 MG/0.5ML(0.5%) NEB SOLN NEB PRN (06:13)
[2020-03-15] MEDS: IPRATROPIUM BROM 0.5 MG/2.5ML INH SOL NEB PRN (06:13)
[2020-03-15] MEDS: ACCU-CHEK COMFORT CURVE STRIP VI SCH ×2 (06:40→10:30)
[2020-03-15] MEDS: InsuLIN REG 1unit/0.01ml Soln (100units/ml) SC SCH ×2 (06:44→15:49)
--- NOTE | 2020-03-15 07:30 | NUR ---
Opening Shift Note Assumed care of patient, awake and alert. No S/S of distress/SOB or pain. Instructed on POC and to call for assist PRN, will continue to monitor for changes Q1hr and PRN.
[2020-03-15] MEDS: SILDENAFIL CITRATE 20 MG TAB PO SCH ×2 (08:00→14:30)
[2020-03-15 09:00] VITALS: BP 104/64
[2020-03-15] MEDS: SPIRONOLACTONE 25 MG TAB PO SCH (09:35)
[2020-03-15] MEDS: ASPirin 81 mg TAB PO SCH (09:35)
[2020-03-15] MEDS: DOCUSATE SOD 100 MG CAP PO SCH (09:36)
[2020-03-15] MEDS: FUROSEMIDE 40 MG TAB PO SCH (09:36)
[2020-03-15] MEDS: GABAPENTIN 300 MG CAP PO SCH (09:36)
[2020-03-15] MEDS: CARVEDILOL 12.5 MG TAB PO SCH (09:37)
[2020-03-15] MEDS: AMIODARONE HCL 200 MG TAB PO SCH (09:37)
[2020-03-15] MEDS: LISINOPRIL 20 MG TAB PO SCH (10:00)
[2020-03-15] MEDS: LORATADINE 10 MG TAB PO SCH (10:05)
[2020-03-15] MEDS: INSULIN 70/30 1unit/0.01ml Susp (100units/ml) SC SCH (10:13)
--- NOTE | 2020-03-15 11:50 | NUR ---
Nutrition Follow-up Notes Wt.: 91.3 kg Pt was asleep during rounds. pt po intake is adequate aeb 75% po 03/14 per RN doc. Est energy needs 9470-1148 kcal (22-25 kcal/kg BW) Est protein needs 93-103g (1-1.1g/kg BW). Will reassess prn. Labs: Creat 1.60H, Glu 133H, Ca 10.8H, Alb 3.2L Skin: BS 18, low risk GI: Last BM 03/12 per RN Doc PES: Obesity r/t excessive caloric intake aeb 144% of IBW and BMI of 33.2 Increased energy needs r/t chronic medical condition of COPD aeb increased needs from COPD Comments 1) Continue to monitor po intake, skin status, and labs 2) Refer pt to [facility] on DC 3) Continue current plan of care Expected Outcomes/Goals: 1) pt will consume >75% of po intake 2) pt will maintain wt while in hospital 3) F/u 3-5 days
[2020-03-15 13:00] VITALS: BP 97/59
[2020-03-15] MEDS ORDERED: SILD20TA PO (14:41)
[2020-03-15 15:22] VITALS: BP 104/64
--- NOTE | 2020-03-15 15:26 | NUR ---
assessment Patient is a 65 year old male who is alert and oriented. Patients cognitive abilities are intact. Prior to admission patient lived home with family and functioned independently. Patient informed me he is able to care for his own ADLs. Per patient he will return home to his prior living arrangements post discharge and family will transport him home. Patient has a fww for home use. Patients PCP is Dr Elliott. Patient has no insurance. Patient has been assessed by Anthony Sharif of [facility]. Per Anthony patient is over Income. I have provided patient with resources for [facility], Dr. Wooten, and [facility] urgent care for follow up visits. I have provided patient with a prescription card from community assistance program.I informed patient he has a right to speak to a social work coordinator regarding all care. I informed patient he has a right to participate in any and all discharge planning. Patient does not have a POA and advanced directive. I have offered patient information on POA and advanced directives. I informed the patient the advantages and benefits of having an Advanced Directive. Patient verbalized understanding and agreed to discharge plan. Addendum: 03/15/20 at 1531 by Radha PORTER Amended: Links added.
--- NOTE | 2020-03-15 16:17 | NUR ---
Discharge instructions given as ordered. Encourage to follow up with PMD as instructed. All questions and concerns addressed. Patient verbalized understanding. Medication reconciliation form completed and copy given to patient.. IV removed with catheter intact, pressure dressing applied. Telemetry unit returned to ICU. Patient taken to vehicle via wheelchair with all personal belongings, accompanied by staff and family member. No distress noted at time of departure.
== END 2020-03-15 16:06 | disposition home or self-care (01) | DRG 198 ==
LOC: EDBD 01:40 → ER 01:43 → EDUNIT# 01:43 → EDBD 01:43 → TELE 01:44 → TELE-WESTW 09:27
PROVIDERS: ADMIT Hospitalist; ATTEND Internal Medicine
PROC: 4B02XTZ Measurement of Cardiac Defibrillator, External Approach (ICD-10-PCS; principal; 2020-03-14)
DX: I24.9 Acute ischemic heart disease, unspecified (principal); I50.42 Chronic combined systolic (congestive) and diastolic (congestive) heart failure; I27.82 Chronic pulmonary embolism; D63.8 Anemia in other chronic diseases classified elsewhere; E11.21 Type 2 diabetes mellitus with diabetic nephropathy; E66.9 Obesity, unspecified; E78.5 Hyperlipidemia, unspecified; I11.0 Hypertensive heart disease with heart failure; I25.10 Atherosclerotic heart disease of native coronary artery without angina pectoris; I25.2 Old myocardial infarction; I25.5 Ischemic cardiomyopathy; J43.9 Emphysema, unspecified; Z79.84 Long term (current) use of oral hypoglycemic drugs; Z82.49 Family history of ischemic heart disease and other diseases of the circulatory system; Z87.891 Personal history of nicotine dependence; Z95.810 Presence of automatic (implantable) cardiac defibrillator; I27.20 Pulmonary hypertension, unspecified; E83.52 Hypercalcemia; E27.8 Other specified disorders of adrenal gland; Z68.30 Body mass index [BMI] 30.0-30.9, adult
CPT/HCPCS: 36415; 71045; 71250; 78452; 78582; 80048; 80053; 80061; 81001; 82962; 83036; 83735; 83880; 83970; 84443; 84484; 85025; 85610; 85730; 93017; 93306; 94640; G0378; J0153; J1815

== ENCOUNTER 2022-04-02 14:52 | Inpatient (IN) | payer OTHER, MEDICAID ==
[~2022-04-02] VITALS: Ht 167.6 cm; Wt 82.0 kg
[~2022-04-02 14:52] MED LIST changes: +CETI10TA2 PO; -CETI10TA80 PO; +CHOL20007 PO; +ECON1CRE6 TOP; +FENO145T27 PO; +FERR-20 PO; -LISI-646 PO; +LISI20TA28 PO; +SILD20TA PO
[2022-04-02 16:06] LABS: Basophils # (auto) 0 10 ^3/uL (0-0.2); Eosinophils # (auto) 0.1 10 ^3/uL (0-0.8); Lymphocytes # (auto) 1.6 10 ^3/uL (0.4-5.4); Neutrophils # (auto) 2.8 10 ^3/uL (1.6-8.6); Red Cell Distribution Width 16.2 % (11.8-14.3); White Blood Cell 5.4 10^3/uL (4.4-10.8)
[2022-04-02 16:08] LABS: Basophils % (auto) 0.8 % (0.0-2.0); Eosinophils % (auto) 2.4 % (0.0-7.0); Hemoglobin 20.4 g/dL (13.5-17.5); Lymphocytes % (auto) 30.2 % (10.0-50.0); Mean Corpuscular Hemoglobin 32.1 pg (28.0-32.0); Mean Corpuscular Hgb Conc. 34.3 g/dL (32.0-36.0); Mean Corpuscular Volume 93.8 fL (80.0-100.0); Monocytes # (auto) 0.7 10 ^3/uL (0-1.3); Monocytes % (auto) 13.6 % (0.0-12.0); Nucleated Red Blood Cells % 0.7 %; Red Blood Cells 6.36 10^6/uL (4.5-5.90)
[2022-04-02 16:13] LABS: Alanine Aminotransferase 25 U/L (16-61); Albumin 3.6 g/dL (3.4-5.0); Anion Gap 7 (5-15); Aspartate Aminotransferase 22 U/L (15-37); BUN/Creatinine Ratio 11.6; Blood Urea Nitrogen 26 mg/dL (7-18); Calcium 11.5 mg/dL (8.5-10.1); Carbon Dioxide 21 mmol/L (21-32); Chloride 112 mmol/L (98-107); GFR African American 38 mL/min; GFR Non-African American 31 mL/min; Glucose 105 mg/dL (74-106); Potassium 4.3 mmol/L (3.5-5.1); Sodium 140 mmol/L (136-145)
[2022-04-02 16:16] LABS: Alkaline Phosphatase 52 U/L (45-117); Bilirubin, Total 0.5 mg/dL (0.2-1.0); Hematocrit 59.7 % (41.0-53.0); Total Protein 7.2 g/dL (6.4-8.2)
[2022-04-02 17:30] VITALS: BP 132/83
[2022-04-02] MEDS ORDERED: FUROSEMIDE 40 MG/4 ML VIAL IV ONE (22:15)
[2022-04-02] MEDS ORDERED: DOCUSATE SOD 100 MG CAP PO PRN (22:15)
[2022-04-02] MEDS ORDERED: DEXTROSE (50%) 50ML SYRG IV PRN (22:15)
[2022-04-02] MEDS: HYDROcodone-ACET 5/325MG TAB PO PRN (23:12)
[2022-04-03] VITALS (7 sets, daily range): BP systolic 111–152; BP diastolic 55–89
[2022-04-03] MEDS ORDERED: MORPHINE SULFATE INJ 2 MG/ml SYRG IV PRN
[2022-04-03] MEDS ORDERED: NITROGLYCERIN 0.4 MG SL TAB SL PRN
[2022-04-03 05:56] LABS: Eosinophils # (auto) 0.2 10 ^3/uL (0-0.8); Hemoglobin 19.9 g/dL (13.5-17.5); Monocytes # (auto) 0.7 10 ^3/uL (0-1.3); Neutrophils # (auto) 2.2 10 ^3/uL (1.6-8.6); Potassium 4.2 mmol/L (3.5-5.1); Red Blood Cells 6.17 10^6/uL (4.5-5.90); Red Cell Distribution Width 16.1 % (11.8-14.3); White Blood Cell 4.6 10^3/uL (4.4-10.8)
[2022-04-03 05:59] LABS: Basophils # (auto) 0.1 10 ^3/uL (0-0.2); Basophils % (auto) 1.3 % (0.0-2.0); Eosinophils % (auto) 3.6 % (0.0-7.0); Lymphocytes # (auto) 1.4 10 ^3/uL (0.4-5.4); Lymphocytes % (auto) 31.3 % (10.0-50.0); Mean Corpuscular Hemoglobin 32.2 pg (28.0-32.0); Mean Corpuscular Hgb Conc. 34.4 g/dL (32.0-36.0); Mean Corpuscular Volume 93.6 fL (80.0-100.0); Monocytes % (auto) 14.9 % (0.0-12.0); Neutrophils % (auto) 48.9 % (37.0-80.0); Nucleated Red Blood Cells % 1.9 %
[2022-04-03] MEDS ORDERED: ALBUTEROL SULF HFA 90MCG INH 200DOSE IN SCH (06:00)
[2022-04-03] MEDS ORDERED: ALBUTEROL SULF 2.5 MG/0.5ML(0.5%) NEB SOLN NEB PRN (06:00)
[2022-04-03 06:03] LABS: Albumin 3.7 g/dL (3.4-5.0); BUN/Creatinine Ratio 15.3; Calcium 11.7 mg/dL (8.5-10.1)
[2022-04-03 06:06] LABS: Bilirubin, Total 0.5 mg/dL (0.2-1.0); Total Protein 6.9 g/dL (6.4-8.2)
[2022-04-03] MEDS: InsuLIN REG 1unit/0.01ml Soln (100units/ml) SC SCH ×4 (06:21→21:15)
[2022-04-03] MEDS: ACCU-CHEK COMFORT CURVE STRIP VI SCH ×4 (06:21→21:15)
[2022-04-03] MEDS: SODIUM CHLOR 0.9% PF (SALINE LOCK) 10ML VIAL/SYR IV SCH ×3 (06:21→21:20)
[2022-04-03 06:22] LABS: Hematocrit 57.8 % (41.0-53.0)
[2022-04-03] MEDS ORDERED: ZOLEDRONIC ACID 4 MG in SODIUM CHL 0.9% 100 ML IV ONE (09:15)
[2022-04-03] MEDS: FAMOTIDINE (10MG/ML) 2ML VL IV SCH (09:16)
[2022-04-03] MEDS: FUROSEMIDE 40 MG/4 ML VIAL IV SCH (09:18)
[2022-04-03] MEDS: APIXABAN 2.5 MG TAB PO SCH ×2 (09:19→21:16)
[2022-04-03] MEDS ORDERED: CARVEDILOL 3.125 MG TAB PO SCH (10:00)
[2022-04-03] MEDS ORDERED: cefTRIAXone 1GM/50ML D5W 50 ML IV ONE (11:15)
[2022-04-03] MEDS ORDERED: AZITHROMYCIN 500MG/ 250ML 250 ML IV ONE (11:15)
[2022-04-03] MEDS: HYDROcodone-ACET 5/325MG TAB PO PRN (19:36)
[2022-04-03] MEDS: SACUBITRIL-VALSARTAN 24mg/26mg TAB PO SCH (21:16)
[2022-04-04 05:00] VITALS: BP 126/85
[2022-04-04 05:50] LABS: Potassium 4.1 mmol/L (3.5-5.1)
[2022-04-04 05:55] LABS: BUN/Creatinine Ratio 15.9; Calcium 11.1 mg/dL (8.5-10.1)
[2022-04-04] MEDS: ACCU-CHEK COMFORT CURVE STRIP VI SCH ×4 (06:07→21:02)
[2022-04-04] MEDS: InsuLIN REG 1unit/0.01ml Soln (100units/ml) SC SCH ×4 (06:07→21:07)
[2022-04-04] MEDS: SODIUM CHLOR 0.9% PF (SALINE LOCK) 10ML VIAL/SYR IV SCH ×3 (06:07→21:02)
[2022-04-04 08:46] VITALS: BP 130/89
[2022-04-04] MEDS: cefTRIAXone 1GM/50ML D5W 50 ML IV SCH (09:37)
[2022-04-04] MEDS: FUROSEMIDE 40 MG/4 ML VIAL IV SCH (09:38)
[2022-04-04] MEDS: AZITHROMYCIN 500MG/ 250ML 250 ML IV SCH (09:39)
[2022-04-04] MEDS: FAMOTIDINE (10MG/ML) 2ML VL IV SCH (09:39)
[2022-04-04] MEDS: SACUBITRIL-VALSARTAN 24mg/26mg TAB PO SCH ×2 (09:40→21:04)
[2022-04-04] MEDS: APIXABAN 2.5 MG TAB PO SCH ×2 (10:33→12:09)
[2022-04-04] MEDS: ONDANSETRON HCL 4 MG/2 ML VIAL IV PRN (10:44)
[2022-04-04 12:47] VITALS: BP 118/64
[2022-04-04 16:51] VITALS: BP 138/91
[2022-04-04] MEDS: HYDROcodone-ACET 5/325MG TAB PO PRN (21:07)
[2022-04-04 22:00] VITALS: BP 117/81
[2022-04-05 05:00] VITALS: BP 129/85
[2022-04-05] MEDS: SODIUM CHLOR 0.9% PF (SALINE LOCK) 10ML VIAL/SYR IV SCH ×3 (06:00→21:14)
[2022-04-05] MEDS: ACCU-CHEK COMFORT CURVE STRIP VI SCH ×4 (06:39→21:16)
[2022-04-05] MEDS: InsuLIN REG 1unit/0.01ml Soln (100units/ml) SC SCH ×4 (06:39→21:16)
[2022-04-05 07:42] LABS: Potassium 4.6 mmol/L (3.5-5.1)
[2022-04-05] MEDS ORDERED: ZOLEDRONIC ACID 4 MG in SODIUM CHL 0.9% 100 ML IV ONE ×2 (08:15→13:45)
[2022-04-05] MEDS: cefTRIAXone 1GM/50ML D5W 50 ML IV SCH (08:30)
[2022-04-05 09:00] VITALS: BP 135/84
[2022-04-05] MEDS: APIXABAN 2.5 MG TAB PO SCH ×2 (09:36→21:14)
[2022-04-05] MEDS: ACETAMINOPHEN 325 MG TAB PO PRN (09:37)
[2022-04-05] MEDS: SACUBITRIL-VALSARTAN 24mg/26mg TAB PO SCH ×2 (09:38→21:14)
[2022-04-05] MEDS: AZITHROMYCIN 500MG/ 250ML 250 ML IV SCH (09:40)
[2022-04-05] MEDS: FAMOTIDINE (10MG/ML) 2ML VL IV SCH (10:00)
[2022-04-05] MEDS: CALCITONIN 400unit/2ml Vial (200unit/ml) SC SCH ×2 (12:53→14:09)
[2022-04-05 13:00] VITALS: BP 122/84
[2022-04-05] MEDS: ONDANSETRON HCL 4 MG/2 ML VIAL IV PRN (14:59)
[2022-04-05 17:00] VITALS: BP 135/85
[2022-04-05] MEDS: HYDROcodone-ACET 5/325MG TAB PO PRN (20:12)
[2022-04-05 22:35] VITALS: BP 121/75
[2022-04-06 01:17] VITALS: BP 121/75
[2022-04-06 05:00] VITALS: BP 137/93
[2022-04-06] MEDS: SODIUM CHLOR 0.9% PF (SALINE LOCK) 10ML VIAL/SYR IV SCH ×3 (06:04→21:20)
[2022-04-06] MEDS: InsuLIN REG 1unit/0.01ml Soln (100units/ml) SC SCH ×4 (06:04→21:28)
[2022-04-06] MEDS: ACCU-CHEK COMFORT CURVE STRIP VI SCH ×4 (06:04→21:22)
[2022-04-06 07:22] LABS: Albumin 3.5 g/dL (3.4-5.0); BUN/Creatinine Ratio 15.3; Calcium 11.1 mg/dL (8.5-10.1); Potassium 4.7 mmol/L (3.5-5.1)
[2022-04-06 07:49] LABS: Bilirubin, Total 0.6 mg/dL (0.2-1.0); Total Protein 7.2 g/dL (6.4-8.2)
[2022-04-06 09:00] VITALS: BP 157/87
[2022-04-06] MEDS: cefTRIAXone 1GM/50ML D5W 50 ML IV SCH (09:09)
[2022-04-06] MEDS: CALCITONIN 400unit/2ml Vial (200unit/ml) SC SCH ×2 (09:45→21:22)
[2022-04-06] MEDS: APIXABAN 2.5 MG TAB PO SCH ×2 (09:45→21:21)
[2022-04-06] MEDS: SACUBITRIL-VALSARTAN 24mg/26mg TAB PO SCH ×2 (09:45→21:21)
[2022-04-06] MEDS: FAMOTIDINE (10MG/ML) 2ML VL IV SCH (10:00)
[2022-04-06] MEDS: AZITHROMYCIN 500MG/ 250ML 250 ML IV SCH (11:25)
[2022-04-06 13:00] VITALS: BP 124/82
[2022-04-06] MEDS: ONDANSETRON HCL 4 MG/2 ML VIAL IV PRN (14:39)
[2022-04-06] MEDS ORDERED: FENO160T8 PO (14:44)
[2022-04-06] MEDS ORDERED: CHOL1TAB5 PO (14:50)
[2022-04-06] MEDS ORDERED: OMEP20TA PO (14:55)
[2022-04-06] MEDS ORDERED: ATOR20TA50 PO (14:55)
[2022-04-06] MEDS ORDERED: SACU1TAB PO (14:55)
[2022-04-06] MEDS ORDERED: EMPA1TAB3 PO (14:55)
[2022-04-06] MEDS ORDERED: INS7030I SC (15:04)
[2022-04-06 17:00] VITALS: BP 147/65
[2022-04-06] MEDS: ACETAMINOPHEN 325 MG TAB PO PRN (18:22)
[2022-04-06] MEDS: HYDROcodone-ACET 5/325MG TAB PO PRN (21:34)
[2022-04-06 22:00] VITALS: BP 110/67
[2022-04-07 05:00] VITALS: BP 123/78
[2022-04-07] MEDS: InsuLIN REG 1unit/0.01ml Soln (100units/ml) SC SCH ×4 (06:24→22:20)
[2022-04-07] MEDS: SODIUM CHLOR 0.9% PF (SALINE LOCK) 10ML VIAL/SYR IV SCH ×3 (06:24→22:14)
[2022-04-07] MEDS: ACCU-CHEK COMFORT CURVE STRIP VI SCH ×4 (06:25→22:14)
[2022-04-07 09:00] VITALS: BP 113/74
[2022-04-07] MEDS: SACUBITRIL-VALSARTAN 24mg/26mg TAB PO SCH ×2 (11:10→22:00)
[2022-04-07] MEDS: AZITHROMYCIN 500MG/ 250ML 250 ML IV SCH (11:10)
[2022-04-07] MEDS: APIXABAN 2.5 MG TAB PO SCH ×2 (11:10→22:23)
[2022-04-07] MEDS: cefTRIAXone 1GM/50ML D5W 50 ML IV SCH (11:11)
[2022-04-07 13:00] VITALS: BP 117/77
[2022-04-07 17:15] VITALS: BP 113/36
[2022-04-07] MEDS: HYDROcodone-ACET 5/325MG TAB PO PRN (20:32)
[2022-04-07 22:00] VITALS: BP 104/71
[2022-04-08 04:52] VITALS: BP 109/75
[2022-04-08 05:56] LABS: Potassium 4.4 mmol/L (3.5-5.1)
[2022-04-08 05:59] LABS: BUN/Creatinine Ratio 18.2; Calcium 10.3 mg/dL (8.5-10.1)
[2022-04-08] MEDS: ACCU-CHEK COMFORT CURVE STRIP VI SCH ×3 (06:04→17:00)
[2022-04-08] MEDS: SODIUM CHLOR 0.9% PF (SALINE LOCK) 10ML VIAL/SYR IV SCH ×2 (06:05→16:23)
[2022-04-08] MEDS: InsuLIN REG 1unit/0.01ml Soln (100units/ml) SC SCH ×3 (06:05→17:00)
[2022-04-08] MEDS: cefTRIAXone 1GM/50ML D5W 50 ML IV SCH (08:48)
[2022-04-08 09:00] VITALS: BP 121/73
[2022-04-08] MEDS: APIXABAN 2.5 MG TAB PO SCH (09:49)
[2022-04-08] MEDS: SACUBITRIL-VALSARTAN 24mg/26mg TAB PO SCH (09:49)
[2022-04-08] MEDS: AZITHROMYCIN 500MG/ 250ML 250 ML IV SCH (09:49)
[2022-04-08 13:09] VITALS: BP 122/84
[2022-04-08] MEDS ORDERED: AZIT500T66 PO (13:27)
[2022-04-08 17:04] VITALS: BP 130/89
== END 2022-04-08 17:55 | disposition home or self-care (01) | DRG 177 ==
LOC: ER 14:52 → TELE 23:50 → CENTRAL 23:56 → TELE-CENTR 04-03 00:15 → TELE 04-08 09:42 → TELE-CENTR 04-08 09:52
PROVIDERS: ADMIT Nurse Practitioner Family; ATTEND Family Medicine
DX: J69.0 Pneumonitis due to inhalation of food and vomit (principal); J96.01 Acute respiratory failure with hypoxia; I50.23 Acute on chronic systolic (congestive) heart failure; J44.1 Chronic obstructive pulmonary disease with (acute) exacerbation; N17.9 Acute kidney failure, unspecified; I13.0 Hypertensive heart and chronic kidney disease with heart failure and stage 1 through stage 4 chronic kidney disease, or unspecified chronic kidney disease; J98.11 Atelectasis; N18.31 Chronic kidney disease, stage 3a; I25.10 Atherosclerotic heart disease of native coronary artery without angina pectoris; E11.22 Type 2 diabetes mellitus with diabetic chronic kidney disease; E21.0 Primary hyperparathyroidism; I48.91 Unspecified atrial fibrillation; Z20.822 Contact with and (suspected) exposure to COVID-19; Z79.01 Long term (current) use of anticoagulants; Z82.49 Family history of ischemic heart disease and other diseases of the circulatory system; Z95.810 Presence of automatic (implantable) cardiac defibrillator; Z99.81 Dependence on supplemental oxygen; Z88.8 Allergy status to other drugs, medicaments and biological substances; Z79.4 Long term (current) use of insulin
CPT/HCPCS: 36415; 71045; 71250; 78070; 80048; 80053; 82306; 82962; 83036; 83880; 83970; 84100; 84484; 85025; 93005; 93306; 96374; 99291; G0378; J0696; J1815; J2405; J3489

== ENCOUNTER 2022-12-04 07:41 | Emergency (ER) | payer OTHER, MEDICAID ==
[~2022-12-04] VITALS: Ht 167.6 cm; Wt 83.1 kg
[~2022-12-04 07:41] MED LIST changes: +ATOR20TA50 PO; +AZIT500T66 PO; +CHOL1TAB5 PO; -CHOL20007 PO; -ECON1CRE6 TOP; +EMPA1TAB3 PO; -FENO145T27 PO; +FENO160T8 PO; -FERR-20 PO; -GUAI600T23 PO; +INS7030I SC; -INSU70IN3 SC; -LISI20TA28 PO; +OMEP20TA PO; -RIVA10TA PO; +SACU1TAB PO; -SILD20TA PO
[2022-12-04 07:45] VITALS: BP 139/78
[2022-12-04] MEDS ORDERED: SODIUM CHLORIDE 0.9% 1,000 ML IV ONE (08:15)
[2022-12-04 08:26] LABS: Basophils # (auto) 0 10 ^3/uL (0-0.2); Basophils % (auto) 0.8 % (0.0-2.0); Monocytes # (auto) 0.5 10 ^3/uL (0-1.3); Red Cell Distribution Width 15.1 % (11.8-14.3)
[2022-12-04 08:28] LABS: Eosinophils # (auto) 0.2 10 ^3/uL (0-0.8); Hematocrit 52.7 % (41.0-53.0); Hemoglobin 17.6 g/dL (13.5-17.5); Lymphocytes # (auto) 1.3 10 ^3/uL (0.4-5.4); Lymphocytes % (auto) 33.4 % (10.0-50.0); Mean Corpuscular Hgb Conc. 33.4 g/dL (32.0-36.0); Mean Corpuscular Volume 92.9 fL (80.0-100.0); Monocytes % (auto) 12.6 % (0.0-12.0); Neutrophils # (auto) 1.9 10 ^3/uL (1.6-8.6); Neutrophils % (auto) 49.2 % (37.0-80.0); Nucleated Red Blood Cells % 0.8 %; Red Blood Cells 5.67 10^6/uL (4.5-5.90); White Blood Cell 3.9 10^3/uL (4.4-10.8)
[2022-12-04 08:52] LABS: Albumin 3.6 g/dL (3.4-5.0); Calcium 10.1 mg/dL (8.5-10.1); Magnesium 2.3 mg/dL (1.6-2.6); Potassium 4.3 mmol/L (3.5-5.1)
[2022-12-04 09:00] LABS: BUN/Creatinine Ratio 8.7; Bilirubin, Total 0.5 mg/dL (0.2-1.0); Total Protein 6.3 g/dL (6.4-8.2)
[2022-12-04 09:05] LABS: Urine Bacteria NONE SEEN /hpf (None Seen); Urine Blood Negative /uL (Negative); Urine Specific Gravity 1.016 (1.001-1.035); Urine WBC 1 /hpf (0 - 3)
== END 2022-12-04 15:38 | disposition home or self-care (01) ==
LOC: ER 07:41
DX: Z00.00 Encounter for general adult medical examination without abnormal findings (principal); I11.0 Hypertensive heart disease with heart failure; I50.9 Heart failure, unspecified; I25.10 Atherosclerotic heart disease of native coronary artery without angina pectoris; I48.91 Unspecified atrial fibrillation; E11.9 Type 2 diabetes mellitus without complications; J44.9 Chronic obstructive pulmonary disease, unspecified; Z87.891 Personal history of nicotine dependence; Z95.0 Presence of cardiac pacemaker; Z79.899 Other long term (current) drug therapy; Z79.4 Long term (current) use of insulin; Z88.8 Allergy status to other drugs, medicaments and biological substances
CPT/HCPCS: 36415; 80053; 81001; 83735; 84484; 85025; 93005

== ENCOUNTER 2023-03-14 06:45 | Emergency (ER) | payer OTHER, MEDICAID ==
[~2023-03-14] VITALS: Ht 167.6 cm; Wt 85.0 kg
[2023-03-14 10:02] VITALS: BP 142/85
[2023-03-14] MEDS ORDERED: ACETAMINOPHEN 325 MG TAB PO ONE (11:15)
[2023-03-14] MEDS ORDERED: CYCL-839 PO (11:20)
== END 2023-03-14 11:41 | disposition home or self-care (01) ==
LOC: ER 06:45
DX: S93.601A Unspecified sprain of right foot, initial encounter (principal); E11.9 Type 2 diabetes mellitus without complications; I11.0 Hypertensive heart disease with heart failure; I50.9 Heart failure, unspecified; J44.9 Chronic obstructive pulmonary disease, unspecified; I48.91 Unspecified atrial fibrillation; I25.10 Atherosclerotic heart disease of native coronary artery without angina pectoris; Z95.0 Presence of cardiac pacemaker; Z88.8 Allergy status to other drugs, medicaments and biological substances; X58.XXXA Exposure to other specified factors, initial encounter; Y93.89 Activity, other specified; Y92.89 Other specified places as the place of occurrence of the external cause; Y99.8 Other external cause status
CPT/HCPCS: 29515; 73630

== ENCOUNTER 2023-06-02 21:29 | Emergency (ER) | payer OTHER, MEDICAID ==
[~2023-06-02] VITALS: Ht 167.6 cm; Wt 81.4 kg
[~2023-06-02 21:29] MED LIST changes: +CYCL-839 PO; +FENO160T PO; -FENO160T8 PO; +GABA-1250 PO; -GABA300C10 PO
[2023-06-03] MEDS ORDERED: ACETAMINOPHEN 325 MG TAB PO ONE
[2023-06-03 00:05] VITALS: BP 147/92; PULSE 64; RESP 16; TEMP 97.9; O2SAT 92
== END 2023-06-03 00:47 | disposition home or self-care (01) ==
LOC: ER 21:29
DX: M54.59 Other low back pain (principal); I25.10 Atherosclerotic heart disease of native coronary artery without angina pectoris; E11.9 Type 2 diabetes mellitus without complications; J44.9 Chronic obstructive pulmonary disease, unspecified; Z79.899 Other long term (current) drug therapy; Z88.8 Allergy status to other drugs, medicaments and biological substances
CPT/HCPCS: 72131; 73502

== ENCOUNTER 2023-11-07 05:06 | Inpatient (IN) | payer OTHER, MEDICAID ==
[~2023-11-07] VITALS: Ht 167.6 cm; Wt 81.4 kg
[~2023-11-07 05:06] MED LIST changes: -FLUT250INH IN; +FLUT250INH INH
[2023-11-07 06:30] LABS: Basophils # (auto) 0 10 ^3/uL (0-0.2); Basophils % (auto) 0.4 % (0.0-2.0); Eosinophils # (auto) 0.2 10 ^3/uL (0-0.8); Eosinophils % (auto) 1.9 % (0.0-7.0); Hematocrit 51.5 % (41.0-53.0); Hemoglobin 17.1 g/dL (13.5-17.5); Lymphocytes # (auto) 1.8 10 ^3/uL (0.4-5.4); Lymphocytes % (auto) 16.8 % (10.0-50.0); Mean Corpuscular Hemoglobin 30.4 pg (28.0-32.0); Mean Corpuscular Hgb Conc. 33.2 g/dL (32.0-36.0); Mean Corpuscular Volume 91.8 fL (80.0-100.0); Monocytes # (auto) 1.1 10 ^3/uL (0-1.3); Monocytes % (auto) 9.9 % (0.0-12.0); Neutrophils # (auto) 7.7 10 ^3/uL (1.6-8.6); Nucleated Red Blood Cells % 0.1 %; Red Blood Cells 5.61 10^6/uL (4.5-5.90); White Blood Cell 10.9 10^3/uL (4.4-10.8)
[2023-11-07 06:43] LABS: Alanine Aminotransferase 47 U/L (7-40); Alkaline Phosphatase 57 U/L (46-116); Anion Gap 7 (5-15); Calcium 8.7 mg/dL (8.7-10.4); Carbon Dioxide 27 mmol/L (20-30); Chloride 103 mmol/L (98-107); Glucose 176 mg/dL (74-106); Potassium 4.5 mmol/L (3.5-5.1); Sodium 137 mmol/L (136-145)
[2023-11-07 06:44] LABS: Albumin 4.3 g/dL (3.2-4.8); Aspartate Aminotransferase 26 U/L (13-40); Bilirubin, Total 0.7 mg/dL (0.2-1.0); Blood Urea Nitrogen 34 mg/dL (9-23)
[2023-11-07 07:39] LABS: INR 1.11 (0.9-1.15); Partial Thromboplastin Time 31.8 SEC (24.5-34.5); Prothrombin Time 11.6 sec (9.3-11.8)
[2023-11-07] MEDS ORDERED: PIPERACILLIN-TAZOB 3.375GM 100 ML IV ONE (08:30)
[2023-11-07] MEDS ORDERED: AZITHROMYCIN 500MG/ 250ML 250 ML IV ONE (08:30)
[2023-11-07] MEDS ORDERED: LOPE-62 PO (09:20)
[2023-11-07] MEDS ORDERED: RIV20T PO (09:20)
[2023-11-07] MEDS ORDERED: CELE1CAP6 PO (09:20)
[2023-11-07] MEDS: Fenofibrate 160MG TABLETS PO SCH (10:00)
[2023-11-07] MEDS: SALMETEROL XINAFOATE 50 MCG IN SCH ×2 (10:00→22:00)
[2023-11-07] MEDS ORDERED: ATORVASTATIN 20 MG TAB PO SCH (10:00)
[2023-11-07] MEDS: SACUBITRIL-VALSARTAN 24mg/26mg TAB PO SCH ×2 (10:00→22:14)
[2023-11-07] MEDS ORDERED: MORPHINE SULFATE INJ 2 MG/ml SYRG IV PRN (10:45)
[2023-11-07] MEDS ORDERED: NITROGLYCERIN 0.4 MG SL TAB SL PRN (10:45)
[2023-11-07] MEDS ORDERED: ACETAMINOPHEN 325 MG TAB PO PRN (10:45)
[2023-11-07] MEDS ORDERED: HYDROcodone-ACET 5/325MG TAB PO PRN (10:45)
[2023-11-07] MEDS ORDERED: CARV12.544 PO (10:55)
[2023-11-07] MEDS ORDERED: DEXTROSE (50%) 50ML SYRG IV PRN (11:00)
[2023-11-07] MEDS: ALBUTEROL SULF 2.5 MG/0.5ML(0.5%) NEB SOLN NEB SCH ×2 (11:24→19:21)
[2023-11-07] MEDS: IPRATROPIUM BROM 0.5 MG/2.5ML INH SOL NEB SCH ×2 (11:24→19:21)
[2023-11-07] MEDS: InsuLIN REG 1unit/0.01ml Soln (100units/ml) SC SCH ×3 (11:30→22:16)
[2023-11-07] MEDS: ACCU-CHEK COMFORT CURVE STRIP VI SCH ×3 (11:30→22:15)
[2023-11-07] MEDS: SODIUM CHLOR 0.9% PF (SALINE LOCK) 10ML VIAL/SYR IV SCH ×2 (14:00→22:14)
[2023-11-07] MEDS: GABAPENTIN 300 MG CAP PO SCH ×2 (14:00→22:14)
[2023-11-07 14:25] VITALS: BP 137/76; PULSE 78; RESP 16; TEMP 98; O2SAT 95
[2023-11-07] MEDS ORDERED: RIVAROXABAN 15 MG TAB PO SCH (18:00)
[2023-11-07 19:21] VITALS: PULSE 67; RESP 20; O2SAT 88
[2023-11-07 19:27] VITALS: PULSE 68; RESP 18; O2SAT 91
[2023-11-07] MEDS: FUROSEMIDE 40 MG TAB PO SCH (19:51)
[2023-11-07] MEDS: EMPAGLIFLOZIN 10 MG TAB PO SCH (19:51)
[2023-11-07] MEDS: SPIRONOLACTONE 25 MG TAB PO SCH (19:51)
[2023-11-07] MEDS: PANTOPRAZOLE 40 MG TAB PO SCH (19:52)
[2023-11-07] MEDS: cefTRIAXone 1GM/50ML D5W 50 ML IV SCH (20:17)
[2023-11-07] MEDS: CARVEDILOL 12.5 MG TAB PO SCH (22:14)
[2023-11-08] VITALS (12 sets, daily range): BP systolic 110–133; BP diastolic 72–79; PULSE 53–73; RESP 14–20; TEMP 96.1–98.7; O2SAT 89–96
[2023-11-08 03:12] LABS: Creatinine, Urine 56.4 mg/dL (30.0-125.0)
[2023-11-08 03:29] LABS: Urine Bacteria FEW /hpf (None Seen); Urine Blood Negative /uL (Negative); Urine Clarity Clear (Clear); Urine Color Colorless (Yellow); Urine Protein, UAD Negative (Negative); Urine Specific Gravity 1.015 (1.001-1.035); Urine Urobilinogen Normal (Negative); Urine WBC <1 /hpf (0 - 3); Urine pH 6.5 (5.0-8.0)
[2023-11-08 05:37] LABS: Basophils # (auto) 0 10 ^3/uL (0-0.2); Basophils % (auto) 0.6 % (0.0-2.0); Eosinophils # (auto) 0.3 10 ^3/uL (0-0.8); Eosinophils % (auto) 4.1 % (0.0-7.0); Hematocrit 48.6 % (41.0-53.0); Hemoglobin 16.4 g/dL (13.5-17.5); Lymphocytes # (auto) 1.8 10 ^3/uL (0.4-5.4); Lymphocytes % (auto) 27.6 % (10.0-50.0); Mean Corpuscular Hemoglobin 30.7 pg (28.0-32.0); Mean Corpuscular Hgb Conc. 33.8 g/dL (32.0-36.0); Mean Corpuscular Volume 90.9 fL (80.0-100.0); Monocytes # (auto) 0.8 10 ^3/uL (0-1.3); Monocytes % (auto) 12.7 % (0.0-12.0); Neutrophils # (auto) 3.6 10 ^3/uL (1.6-8.6); Nucleated Red Blood Cells % 0.4 %; Red Blood Cells 5.35 10^6/uL (4.5-5.90); Red Cell Distribution Width 15.7 % (11.8-14.3); White Blood Cell 6.5 10^3/uL (4.4-10.8)
[2023-11-08 05:48] LABS: Alanine Aminotransferase 29 U/L (7-40); Albumin 4.1 g/dL (3.2-4.8); Alkaline Phosphatase 44 U/L (46-116); Anion Gap 8 (5-15); Aspartate Aminotransferase 16 U/L (13-40); BUN/Creatinine Ratio 13.4 (10.0-20.0); Blood Urea Nitrogen 25 mg/dL (9-23); Calcium 8.3 mg/dL (8.7-10.4); Carbon Dioxide 24 mmol/L (20-30); Chloride 105 mmol/L (98-107); Glucose 132 mg/dL (74-106); Potassium 4.3 mmol/L (3.5-5.1); Sodium 137 mmol/L (136-145); Uric Acid 8.1 mg/dL (3.7-9.2)
[2023-11-08 05:49] LABS: Phosphorus 3.6 mg/dL (2.4-5.1); Total Protein 6.8 g/dL (5.7-8.2)
[2023-11-08 05:56] LABS: Bilirubin, Total 0.6 mg/dL (0.2-1.0)
[2023-11-08] MEDS: SODIUM CHLOR 0.9% PF (SALINE LOCK) 10ML VIAL/SYR IV SCH ×3 (06:09→22:18)
[2023-11-08] MEDS: ACCU-CHEK COMFORT CURVE STRIP VI SCH ×6 (06:15→22:27)
[2023-11-08] MEDS: GABAPENTIN 300 MG CAP PO SCH ×3 (06:33→22:16)
[2023-11-08] MEDS: InsuLIN REG 1unit/0.01ml Soln (100units/ml) SC SCH ×5 (06:34→22:29)
[2023-11-08] MEDS: ALBUTEROL SULF 2.5 MG/0.5ML(0.5%) NEB SOLN NEB SCH ×3 (06:40→18:00)
[2023-11-08] MEDS: IPRATROPIUM BROM 0.5 MG/2.5ML INH SOL NEB SCH ×3 (06:40→18:00)
[2023-11-08 06:54] LABS: Bilirubin, Direct 0.2 mg/dL (<0.3)
[2023-11-08] MEDS: AZITHROMYCIN 500MG/ 250ML 250 ML IV SCH ×2 (09:37→11:02)
[2023-11-08] MEDS: SACUBITRIL-VALSARTAN 24mg/26mg TAB PO SCH ×2 (09:37→22:16)
[2023-11-08] MEDS: cefTRIAXone 1GM/50ML D5W 50 ML IV SCH (09:37)
[2023-11-08] MEDS: PANTOPRAZOLE 40 MG TAB PO SCH (09:38)
[2023-11-08] MEDS: EMPAGLIFLOZIN 10 MG TAB PO SCH (09:38)
[2023-11-08] MEDS: FUROSEMIDE 40 MG TAB PO SCH (09:40)
[2023-11-08] MEDS: CARVEDILOL 12.5 MG TAB PO SCH ×2 (09:40→22:18)
[2023-11-08] MEDS: SPIRONOLACTONE 25 MG TAB PO SCH (09:55)
[2023-11-08] MEDS: Fenofibrate 160MG TABLETS PO SCH (09:55)
[2023-11-08] MEDS: SALMETEROL XINAFOATE 50 MCG IN SCH ×2 (09:55→22:00)
[2023-11-08] MEDS ORDERED: DEXTROSE (50%) 50ML SYRG IV PRN (12:00)
[2023-11-09] VITALS (14 sets, daily range): BP systolic 101–127; BP diastolic 60–82; PULSE 61–76; RESP 16–20; TEMP 97.5–97.8; O2SAT 90–96
[2023-11-09] MEDS: SODIUM CHLOR 0.9% PF (SALINE LOCK) 10ML VIAL/SYR IV SCH ×3 (06:09→22:14)
[2023-11-09] MEDS: GABAPENTIN 300 MG CAP PO SCH ×3 (06:10→22:18)
[2023-11-09] MEDS: ACCU-CHEK COMFORT CURVE STRIP VI SCH ×7 (06:10→22:14)
[2023-11-09] MEDS: InsuLIN REG 1unit/0.01ml Soln (100units/ml) SC SCH ×5 (06:12→22:18)
[2023-11-09 06:16] LABS: Basophils # (auto) 0 10 ^3/uL (0-0.2); Basophils % (auto) 0.5 % (0.0-2.0); Eosinophils # (auto) 0.4 10 ^3/uL (0-0.8); Eosinophils % (auto) 5.9 % (0.0-7.0); Hematocrit 52.4 % (41.0-53.0); Hemoglobin 17.9 g/dL (13.5-17.5); Lymphocytes # (auto) 1.9 10 ^3/uL (0.4-5.4); Lymphocytes % (auto) 30.2 % (10.0-50.0); Mean Corpuscular Hemoglobin 30.9 pg (28.0-32.0); Mean Corpuscular Hgb Conc. 34.1 g/dL (32.0-36.0); Mean Corpuscular Volume 90.6 fL (80.0-100.0); Monocytes # (auto) 0.7 10 ^3/uL (0-1.3); Monocytes % (auto) 10.3 % (0.0-12.0); Neutrophils # (auto) 3.4 10 ^3/uL (1.6-8.6); Neutrophils % (auto) 53.1 % (37.0-80.0); Nucleated Red Blood Cells % 0.1 %; Red Blood Cells 5.78 10^6/uL (4.5-5.90); Red Cell Distribution Width 15.9 % (11.8-14.3); White Blood Cell 6.4 10^3/uL (4.4-10.8)
[2023-11-09] MEDS: IPRATROPIUM BROM 0.5 MG/2.5ML INH SOL NEB SCH ×3 (06:28→18:52)
[2023-11-09] MEDS: ALBUTEROL SULF 2.5 MG/0.5ML(0.5%) NEB SOLN NEB SCH ×3 (06:28→18:52)
[2023-11-09 06:33] LABS: Anion Gap 10 (5-15); Carbon Dioxide 22 mmol/L (20-30); Chloride 105 mmol/L (98-107); Potassium 4.5 mmol/L (3.5-5.1); Sodium 137 mmol/L (136-145)
[2023-11-09 06:35] LABS: Calcium 9.3 mg/dL (8.5-10.1)
[2023-11-09 06:39] LABS: BUN/Creatinine Ratio 12.1 (10.0-20.0); Blood Urea Nitrogen 21 mg/dL (9-23); Glucose 178 mg/dL (74-106)
[2023-11-09] MEDS: Fenofibrate 160MG TABLETS PO SCH (10:00)
[2023-11-09] MEDS: AZITHROMYCIN 500MG/ 250ML 250 ML IV SCH (10:00)
[2023-11-09] MEDS: SALMETEROL XINAFOATE 50 MCG IN SCH ×2 (10:00→22:00)
[2023-11-09] MEDS: SACUBITRIL-VALSARTAN 24mg/26mg TAB PO SCH ×2 (10:19→22:19)
[2023-11-09] MEDS: EMPAGLIFLOZIN 10 MG TAB PO SCH (10:20)
[2023-11-09] MEDS: cefTRIAXone 1GM/50ML D5W 50 ML IV SCH (10:20)
[2023-11-09] MEDS: CARVEDILOL 12.5 MG TAB PO SCH ×2 (10:20→22:19)
[2023-11-09] MEDS: PANTOPRAZOLE 40 MG TAB PO SCH (10:20)
[2023-11-09] MEDS: FUROSEMIDE 40 MG TAB PO SCH (10:22)
[2023-11-09] MEDS: SPIRONOLACTONE 25 MG TAB PO SCH (10:32)
[2023-11-09] MEDS ORDERED: ALBU108A5 INH (14:39)
[2023-11-09] MEDS ORDERED: ATO40T PO (14:40)
[2023-11-09] MEDS ORDERED: DOCU-94 PO (14:57)
[2023-11-09] MEDS ORDERED: BUDE2SUS3 INH (14:57)
[2023-11-09] MEDS ORDERED: OMEG1400 PO (14:57)
[2023-11-09] MEDS ORDERED: HYDR-4798 PO (14:57)
[2023-11-09] MEDS ORDERED: CHOLPOW4 PO (14:57)
[2023-11-09] MEDS ORDERED: CLON0.1T PO (14:57)
[2023-11-09] MEDS ORDERED: FLUT1AER3 INH (14:59)
[2023-11-10] VITALS (14 sets, daily range): BP systolic 109–124; BP diastolic 72–84; PULSE 61–74; RESP 18–20; TEMP 97.7–98.1; O2SAT 92–100
[2023-11-10] MEDS: GABAPENTIN 300 MG CAP PO SCH ×3 (06:23→21:44)
[2023-11-10] MEDS: SODIUM CHLOR 0.9% PF (SALINE LOCK) 10ML VIAL/SYR IV SCH ×3 (06:24→21:46)
[2023-11-10] MEDS: ACCU-CHEK COMFORT CURVE STRIP VI SCH ×4 (06:30→21:46)
[2023-11-10] MEDS: InsuLIN REG 1unit/0.01ml Soln (100units/ml) SC SCH ×4 (06:32→21:43)
[2023-11-10] MEDS: IPRATROPIUM BROM 0.5 MG/2.5ML INH SOL NEB SCH ×3 (07:24→18:24)
[2023-11-10] MEDS: ALBUTEROL SULF 2.5 MG/0.5ML(0.5%) NEB SOLN NEB SCH ×3 (07:24→18:25)
[2023-11-10] MEDS: SALMETEROL XINAFOATE 50 MCG IN SCH ×2 (08:45→21:46)
[2023-11-10] MEDS: cefTRIAXone 1GM/50ML D5W 50 ML IV SCH (08:45)
[2023-11-10] MEDS: Fenofibrate 160MG TABLETS PO SCH (08:46)
[2023-11-10] MEDS: PANTOPRAZOLE 40 MG TAB PO SCH (08:46)
[2023-11-10] MEDS: SPIRONOLACTONE 25 MG TAB PO SCH (08:48)
[2023-11-10] MEDS: CARVEDILOL 12.5 MG TAB PO SCH ×2 (08:48→21:45)
[2023-11-10] MEDS: FUROSEMIDE 40 MG TAB PO SCH (08:48)
[2023-11-10] MEDS: EMPAGLIFLOZIN 10 MG TAB PO SCH (08:49)
[2023-11-10] MEDS: AZITHROMYCIN 250 MG TAB PO SCH (08:50)
[2023-11-10] MEDS: SACUBITRIL-VALSARTAN 24mg/26mg TAB PO SCH ×2 (08:50→21:45)
[2023-11-11] VITALS (8 sets, daily range): BP systolic 116–122; BP diastolic 78–79; PULSE 63–79; RESP 18–20; TEMP 97.3–98; O2SAT 91–94
[2023-11-11] MEDS: GABAPENTIN 300 MG CAP PO SCH (05:27)
[2023-11-11] MEDS: ALBUTEROL SULF 2.5 MG/0.5ML(0.5%) NEB SOLN NEB SCH ×2 (06:00→13:07)
[2023-11-11] MEDS: IPRATROPIUM BROM 0.5 MG/2.5ML INH SOL NEB SCH ×2 (06:00→13:07)
[2023-11-11] MEDS: ACCU-CHEK COMFORT CURVE STRIP VI SCH ×2 (06:14→13:09)
[2023-11-11] MEDS: SODIUM CHLOR 0.9% PF (SALINE LOCK) 10ML VIAL/SYR IV SCH (06:14)
[2023-11-11] MEDS: InsuLIN REG 1unit/0.01ml Soln (100units/ml) SC SCH ×2 (06:16→13:09)
[2023-11-11] MEDS: SALMETEROL XINAFOATE 50 MCG IN SCH (10:00)
[2023-11-11] MEDS: Fenofibrate 160MG TABLETS PO SCH (10:00)
[2023-11-11] MEDS: AZITHROMYCIN 250 MG TAB PO SCH (10:14)
[2023-11-11] MEDS: SACUBITRIL-VALSARTAN 24mg/26mg TAB PO SCH (10:14)
[2023-11-11] MEDS: SPIRONOLACTONE 25 MG TAB PO SCH (10:15)
[2023-11-11] MEDS: EMPAGLIFLOZIN 10 MG TAB PO SCH (10:15)
[2023-11-11] MEDS: PANTOPRAZOLE 40 MG TAB PO SCH (10:15)
[2023-11-11] MEDS: FUROSEMIDE 40 MG TAB PO SCH (10:15)
[2023-11-11] MEDS: CARVEDILOL 12.5 MG TAB PO SCH (10:16)
[2023-11-11] MEDS: cefTRIAXone 1GM/50ML D5W 50 ML IV SCH (10:16)
[2023-11-11] MEDS ORDERED: LEVO500T91 PO (12:36)
== END 2023-11-11 13:57 | disposition home or self-care (01) | DRG 871 ==
LOC: ER 05:06 → TELE 10:55 → TELE-WESTW 11-08 07:59
PROVIDERS: ADMIT Nurse Practitioner Family; ATTEND Internal Medicine
DX: A41.9 Sepsis, unspecified organism (principal); J15.69 Pneumonia due to other Gram-negative bacteria; J15.9 Unspecified bacterial pneumonia; I13.0 Hypertensive heart and chronic kidney disease with heart failure and stage 1 through stage 4 chronic kidney disease, or unspecified chronic kidney disease; R04.2 Hemoptysis; N17.9 Acute kidney failure, unspecified; I50.22 Chronic systolic (congestive) heart failure; I42.8 Other cardiomyopathies; N25.81 Secondary hyperparathyroidism of renal origin; I25.10 Atherosclerotic heart disease of native coronary artery without angina pectoris; N18.32 Chronic kidney disease, stage 3b; Z60.2 Problems related to living alone; E11.22 Type 2 diabetes mellitus with diabetic chronic kidney disease; E27.8 Other specified disorders of adrenal gland; Z87.891 Personal history of nicotine dependence; E27.9 Disorder of adrenal gland, unspecified; I48.91 Unspecified atrial fibrillation; Z82.49 Family history of ischemic heart disease and other diseases of the circulatory system; Z95.810 Presence of automatic (implantable) cardiac defibrillator
CPT/HCPCS: 36415; 71045; 71250; 80048; 80053; 81001; 82248; 82570; 82962; 83036; 83880; 84100; 84156; 84300; 84484; 84550; 85025; 85610; 85730; 93005; 94640; 99291; G0378; J1815; J2543